=== PATIENT | female | born 1960 | race Caucasian/White ===

== ENCOUNTER → 2018-10-30 11:31 | Outpatient (CLI) | payer OTHER, MEDICAID, SELFPAY ==
--- NOTE | 2018-10-30 | DI.MG.S_ITS ---
BILATERAL DIGITAL SCREENING MAMMOGRAM 3D/2D WITH CAD: 10/30/2018 CLINICAL: Routine screening. Family history of breast cancer. Comparison is made to exams dated: 12/13/2016 mammogram, 12/07/2015 mammogram - [facility], and 09/01/2014 mammogram - [facility]. There are scattered fibroglandular elements in both breasts. Current study was also evaluated with a Computer Aided Detection (CAD) system. No significant masses, calcifications, or other findings are seen in either breast. There has been no significant interval change. IMPRESSION: NEGATIVE There is no mammographic evidence of malignancy. A 1 year screening mammogram is recommended. This exam was interpreted at Station ID: [id number]. NOTE: For mammograms, a report in lay terms will be sent to the patient. Approximately 15% of breast malignancies will not be visualized mammographically. In the management of a palpable breast mass, a negative mammogram must not discourage biopsy of a clinically suspicious lesion. Electronically Signed By: Cristina baldwin/erica:10/30/2018 12:57:00 copy to: Mojgan Reagan letter sent: Normal Exam ACR BI-RADS Category 1: Negative [id number]
== END ==
PROVIDERS: PCP Internal Medicine; Visit Provider Internal Medicine
DX: Z12.31 Encounter for screening mammogram for malignant neoplasm of breast (principal); Z80.3 Family history of malignant neoplasm of breast
CPT/HCPCS: 77063; 77067

== ENCOUNTER 2018-11-11 05:00 | Emergency (ER) | payer OTHER, MEDICAID, SELFPAY ==
[2018-11-11 05:18] VITALS: BP 156/87; PULSE 88; RESP 18; TEMP 36.8; O2SAT 100; BMI 35.2
--- NOTE | 2018-11-11 05:21 | ED.ABDPAIN ---
HPI - Abdominal Pain <Fran Forte DO - Last Filed: 11/11/18 18:09> General Chief Complaint: Abdominal Pain Stated Complaint: thinks gall bladder issue hurts when I eat Time Seen by Provider: 11/11/18 05:05 Source: patient Mode of arrival: ambulatory Limitations: no limitations History of Present Illness HPI narrative: Patient is a 58-year-old female here for evaluation of epigastric abdominal pain. She states this is not new. Has been going on for months now. She states it gets worse when she eats greasy foods. The pain that she is currently experiencing has been going on for the past 24 hr. No nausea. No vomiting. No change in her bowel. No urinary symptoms. Patient thinks that she is having gallbladder issues. Related Data Home Medications Medication Instructions Recorded Confirmed ibuprofen 800 mg PO TIDP PRN #0 07/27/16 tramadol 50 mg PO Q4H PRN #0 05/13/17 Previous Rx's Medication Instructions Recorded estradiol 1 mg PO QDAY #90 tab 05/14/17 eszopiclone [Lunesta] 2 mg PO HS #14 tab 07/01/17 trazodone 50 mg tablet See Rx Instructions PO HS #30 tab 05/18/18 Allergies Allergy/AdvReac Type Severity Reaction Status Date / Time latex [LATEX] AdvReac Mild RASH FROM Verified 11/11/18 05:48 RUBBER GLOVES erythromycin base AdvReac Unknown VOMITING Verified 11/11/18 05:48 [ERYTHROMYCIN BASE] Review of Systems <Fran Forte DO - Last Filed: 11/11/18 18:09> Constitutional Denies fever(s) Cardiovascular Denies chest pain and Denies dyspnea Respiratory Denies dyspnea Gastrointestinal Gastrointestinal: Reports abdominal pain, Denies nausea and Denies vomiting Genitourinary Denies dysuria Musculoskeletal Denies myalgias and Denies arthralgias Integumentary/Breasts Denies rash Neurologic Denies behavioral changes Psychiatric Denies behavioral changes Hematologic/Lymphatic Denies easy bleeding and Denies easy bruising PFSH <Fran Forte DO - Last Filed: 11/11/18 18:09> Medical History Insomnia (Acute) Surgical History (Updated 12/16/17 @ 06:03 by Conversion Provider) History of third molar tooth extraction Status post bilateral salpingo-oophorectomy (BSO) (08/30/16) Status post dilation and curettage (08/30/16) Status post tubal ligation Social History Smoking Status: Never smoker Social History Smoking Status: Never smoker Exam <DO Walter Howell Last Filed: 11/11/18 18:09> Initial Vital Signs Initial Vital Signs: Vital Signs Temperature 98.3 F 11/11/18 05:18 Pulse Rate 88 11/11/18 05:18 Respiratory Rate 18 11/11/18 05:18 Blood Pressure 156/87 H 11/11/18 05:18 Pulse Oximetry 100 11/11/18 05:18 Const General: cooperative, well developed, well groomed and No acute distress Orientation: alert, awake and oriented x3 Resp Effort & Inspection: normal respiratory effort Auscultation: clear to auscultation bilaterally Cardio Rate: regular rate Rhythm: regular rhythm GI Inspection: non-distended Palpation: soft, No firm and tender (Epigastric, right upper quadrant) Skin Lesions: no lesions Rashes: no rashes Neuro General: alert, awake and oriented x3 Cognition: normal cognition Speech: speech normal Extrem General: normal to inspection and capillary refill normal Psych Appearance: grossly normal and well kempt <Naomi Mendoza DO - Last Filed: 11/11/18 10:21> Initial Vital Signs Initial Vital Signs: Vital Signs Temperature 98.3 F 11/11/18 05:18 Pulse Rate 88 11/11/18 05:18 Respiratory Rate 18 11/11/18 05:18 Blood Pressure 156/87 H 11/11/18 05:18 Pulse Oximetry 100 11/11/18 05:18 Course <DO Walter Howell Last Filed: 11/11/18 18:09> Orders Ordered: Discontinued Medications Al Hydrox/Mg Hydrox/Simethicone 20 ml/ Lidocaine HCl 15 ml 0 ml PO NOW ONE Stop: 11/11/18 05:28 Last Admin: 11/11/18 05:48 Dose: 45 ml Hydromorphone HCl (Dilaudid) 0.5 mg IV NOW ONE Stop: 11/11/18 07:30 Last Admin: 11/11/18 07:36 Dose: 0.5 mg Sodium Chloride (Normal Saline 0.9%) 1,000 mls @ 1,000 mls/hr IV BOLUS ONE Stop: 11/11/18 07:35 Last Infusion: 11/11/18 09:35 Dose: 0 mls/hr Admin: 11/11/18 06:41 Dose: 1,000 mls/hr Morphine Sulfate (Morphine) 4 mg IV NOW ONE Stop: 11/11/18 06:07 Last Admin: 11/11/18 06:11 Dose: 4 mg Vital Signs - 8 hr 11/11/18 05:18 11/11/18 06:26 11/11/18 06:30 Temperature 98.3 F Pulse Rate 88 87 86 Respiratory Rate 18 18 18 Blood Pressure 156/87 H Blood Pressure [Left Arm] 178/88 H 168/80 H Pulse Oximetry 100 100 99 11/11/18 07:30 11/11/18 08:30 11/11/18 09:30 Temperature Pulse Rate 84 90 84 Respiratory Rate 14 15 15 Blood Pressure Blood Pressure [Left Arm] 137/71 145/80 H 150/86 H Pulse Oximetry 14 L 97 99 <Naomi Mendoza, - Last Filed: 11/11/18 10:21> Orders Ordered: Discontinued Medications Al Hydrox/Mg Hydrox/Simethicone 20 ml/ Lidocaine HCl 15 ml 0 ml PO NOW ONE Stop: 11/11/18 05:28 Last Admin: 11/11/18 05:48 Dose: 45 ml Hydromorphone HCl (Dilaudid) 0.5 mg IV NOW ONE Stop: 11/11/18 07:30 Last Admin: 11/11/18 07:36 Dose: 0.5 mg Sodium Chloride (Normal Saline 0.9%) 1,000 mls @ 1,000 mls/hr IV BOLUS ONE Stop: 11/11/18 07:35 Last Infusion: 11/11/18 09:35 Dose: 0 mls/hr Admin: 11/11/18 06:41 Dose: 1,000 mls/hr Morphine Sulfate (Morphine) 4 mg IV NOW ONE Stop: 11/11/18 06:07 Last Admin: 11/11/18 06:11 Dose: 4 mg Vital Signs - 8 hr 11/11/18 05:18 11/11/18 06:26 11/11/18 06:30 Temperature 98.3 F Pulse Rate 88 87 86 Respiratory Rate 18 18 18 Blood Pressure 156/87 H Blood Pressure [Left Arm] 178/88 H 168/80 H Pulse Oximetry 100 100 99 11/11/18 07:30 11/11/18 08:30 11/11/18 09:30 Temperature Pulse Rate 84 90 84 Respiratory Rate 14 15 15 Blood Pressure Blood Pressure [Left Arm] 137/71 145/80 H 150/86 H Pulse Oximetry 14 L 97 99 MDM - Abdominal Pain <Fran Forte DO - Last Filed: 11/11/18 18:09> Lab Data Attestation: I reviewed the patient's lab results. Result diagrams: 11/11/18 05:33 11/11/18 05:33 Lab Results 11/11/18 11/11/18 Range/Units 05:33 05:33 WBC 5.3 (4.5-11.0) X10^3/uL RBC 4.66 (4.0-5.2) X10^6/uL Hgb 15.1 (12.0-16.0) g/dL Hct 43.1 (36-46) % MCV 92.5 (80-100) fL MCH 32.5 (26-34) PG MCHC 35.2 (30-36) % RDW 12.8 (11.6-14.8) % Plt Count 212 (150-400) X10^3/uL Neut % (Auto) 45.5 L (50-75) % Lymph % (Auto) 41.3 H (25-40) % [place] % (Auto) 9.4 (3-14) % Eos % (Auto) 2.8 (2-4) % Baso % (Auto) 1.0 (0-2) % Neut # (Auto) 2400 (8671-0103) /uL Lymph # (Auto) 2200 (9075-0833) /uL [place] # (Auto) 500 (0-900) /uL Eos # (Auto) 100 (0-450) /uL Baso # (Auto) 100 (0-100) /uL Sodium 138 (137-145) mmol/L Potassium 4.1 (3.4-5.1) mmol/L Chloride 103 (98-107) mmol/L Carbon Dioxide 26 (22-32) mmol/L BUN 11 (7-17) mg/dL Creatinine 0.60 (0.52-1.04) mg/dL Estimated GFR > 60.0 (>60) mL/min BUN/Creatinine Ratio 18.3 (6-22) Glucose 87 (70-100) mg/dL Calcium 9.0 (8.4-10.2) mg/dL Total Bilirubin 0.6 (0.2-1.3) mg/dL AST 47 H (14-36) IU/L ALT 52 (9-52) IU/L Alkaline Phosphatase 78 (38-126) U/L Total Protein 8.1 (6.3-8.2) g/dL Albumin 4.5 (3.5-5.0) g/dL Globulin 3.6 (1.7-4.1) g/dL Albumin/Globulin Ratio 1.3 (1.0-2.8) Lipase 48 (23-300) U/L Imaging Data US - abdomen: Radiologist's impression: Gallbladder sludge. Gallbladder is mildly distended. No sonographic evidence of acute cholecystitis. No gallbladder wall thickening or pericholecystic fluid. Mild common bile duct dilation. Diffuse fatty infiltration of the liver. MDM Narrative Medical decision making narrative: Patient does not have definitive gallbladder discomfort. Her lipase is unremarkable. The GI cocktail did not improve and if her symptoms. Since she has had pain for some time now and has not had any evaluated will obtain a CT scan of the abdomen for further evaluation. Care turned over to day provider to follow up on CT scan and disposition. <Naomi Mendoza DO - Last Filed: 11/11/18 10:21> Lab Data Attestation: I reviewed the patient's lab results. Lab Results 11/11/18 11/11/18 Range/Units 05:33 05:33 WBC 5.3 (4.5-11.0) X10^3/uL RBC 4.66 (4.0-5.2) X10^6/uL Hgb 15.1 (12.0-16.0) g/dL Hct 43.1 (36-46) % MCV 92.5 (80-100) fL MCH 32.5 (26-34) PG MCHC 35.2 (30-36) % RDW 12.8 (11.6-14.8) % Plt Count 212 (150-400) X10^3/uL Neut % (Auto) 45.5 L (50-75) % Lymph % (Auto) 41.3 H (25-40) % [place] % (Auto) 9.4 (3-14) % Eos % (Auto) 2.8 (2-4) % Baso % (Auto) 1.0 (0-2) % Neut # (Auto) 2400 (9450-7676) /uL Lymph # (Auto) 2200 (3802-5327) /uL [place] # (Auto) 500 (0-900) /uL Eos # (Auto) 100 (0-450) /uL Baso # (Auto) 100 (0-100) /uL Sodium 138 (137-145) mmol/L Potassium 4.1 (3.4-5.1) mmol/L Chloride 103 (98-107) mmol/L Carbon Dioxide 26 (22-32) mmol/L BUN 11 (7-17) mg/dL Creatinine 0.60 (0.52-1.04) mg/dL Estimated GFR > 60.0 (>60) mL/min BUN/Creatinine Ratio 18.3 (6-22) Glucose 87 (70-100) mg/dL Calcium 9.0 (8.4-10.2) mg/dL Total Bilirubin 0.6 (0.2-1.3) mg/dL AST 47 H (14-36) IU/L ALT 52 (9-52) IU/L Alkaline Phosphatase 78 (38-126) U/L Total Protein 8.1 (6.3-8.2) g/dL Albumin 4.5 (3.5-5.0) g/dL Globulin 3.6 (1.7-4.1) g/dL Albumin/Globulin Ratio 1.3 (1.0-2.8) Lipase 48 (23-300) U/L Imaging Data US - abdomen: Radiologist's impression: PROCEDURE: CT ABDOMEN PELVIS W CON INDICATIONS: generalized abdominal pain TECHNIQUE: After the administration of intravenous contrast, 5 mm thick sections acquired from the diaphragm to the symphysis. 5 mm coronal and sagittal reformats were acquired. For radiation dose reduction, the following was used: automated exposure control, adjustment of mA and/or kV according to patient size. COMPARISON: None. FINDINGS: Image quality: Excellent. ABDOMEN: Lung bases: Lung bases are clear. Heart size is normal. Solid organs: Liver is normal in size and enhancement. Gallbladder appears normal. Biliary system is non dilated. Pancreas enhances normally. Spleen is normal in size and enhancement. No adrenal nodules. Kidneys demonstrate normal size and enhancement, without hydronephrosis. Peritoneum and bowel: Bowel loops demonstrate normal wall thickness and caliber. No free fluid or air. Nodes and vessels: No retroperitoneal or mesenteric adenopathy by size criteria. Aorta and inferior vena cava are normal in size. Miscellaneous: No ventral hernias. PELVIS: Genitourinary: Bladder wall thickness is normal. Miscellaneous: No inguinal hernias or adenopathy. Bones: No suspicious bony lesions. No vertebral body compression fractures. IMPRESSION: Shortness of generalized abdominal pain is not seen. The study appears normal for age. Dictated by: Blaine Parra M.D. on 11/11/2018 at 9:33 CT scan - abdomen: Radiologist's impression: PROCEDURE: CT ABDOMEN PELVIS W CON INDICATIONS: generalized abdominal pain TECHNIQUE: After the administration of intravenous contrast, 5 mm thick sections acquired from the diaphragm to the symphysis. 5 mm coronal and sagittal reformats were acquired. For radiation dose reduction, the following was used: automated exposure control, adjustment of mA and/or kV according to patient size. COMPARISON: None. FINDINGS: Image quality: Excellent. ABDOMEN: Lung bases: Lung bases are clear. Heart size is normal. Solid organs: Liver is normal in size and enhancement. Gallbladder appears normal. Biliary system is non dilated. Pancreas enhances normally. Spleen is normal in size and enhancement. No adrenal nodules. Kidneys demonstrate normal size and enhancement, without hydronephrosis. Peritoneum and bowel: Bowel loops demonstrate normal wall thickness and caliber. No free fluid or air. Nodes and vessels: No retroperitoneal or mesenteric adenopathy by size criteria. Aorta and inferior vena cava are normal in size. Miscellaneous: No ventral hernias. PELVIS: Genitourinary: Bladder wall thickness is normal. Miscellaneous: No inguinal hernias or adenopathy. Bones: No suspicious bony lesions. No vertebral body compression fractures. IMPRESSION: Shortness of generalized abdominal pain is not seen. The study appears normal for age. Dictated by: Blaine Parra M.D. on 11/11/2018 at 9:33 [facility] Narrative Medical decision making narrative: I received sign-out from security project manager provider. Patient having some epigastric pain seems worse as every time she eats. I have done independent exam by myself she is slightly tender to her epigastric area. We discussed omeprazole twice a day for 2 weeks before meals and possible outpatient EGD. She has appointment with her PCP at 11:30 a.m. today. This time she is ready and able to go home. Discharge Plan Departure Patient Disposition: Home Clinical Impression: Abdominal pain Qualifiers: Abdominal location: epigastric Qualified Code(s): R10.13 - Epigastric pain Discharge Date/Time: 11/11/18 10:03 Interventions: ED Discharge Assessment Last Done: 11/11/18 10:03 Instructions: DI for Abdominal Pain-Adult, DI for Gastric Ulcer, DI for Peptic Ulcer Activity Restrictions/Additional Instructions: *You have been diagnosed with abdominal pain, it is thought that you may have an ulcer. *What to do: At this time blood work, ultrasound and CT are reassuring. Recommend further evaluation with her PCP, he may require an EGD if symptoms do not improve with ulcer treatment *Continue to take medications as directed -omeprazole 20 mg twice a day 30 min prior to breakfast and dinner for 2 weeks and then stop *Follow up with your primary care provider in 2-3 days *Return to ER if you should have increasing pain persistent vomiting or any new, worsening or concerning symptoms Prescriptions: No Action ibuprofen 800 MG tablet 800 mg PO TIDP PRNQty: 0 RF: 0 tramadol 50 MG tablet 50 mg PO Q4H PRN Qty: 0 RF: 0 estradiol 1 MG tablet 1 mg PO QDAY Qty: 90 RF: 3 eszopiclone [Lunesta] 2 MG tablet 2 mg PO HS Qty: 14 RF: 3 trazodone 50 mg tablet See Rx Instructions PO HS Qty: 30 RF: 2 Referrals: Ray Drew MD [Primary Care Provider] -
[2018-11-11] MEDS: MAG HYDROX/ALUMINUM/SIMETH SUS 20 ML, LIDOCAINE VISCOUS 2% 15 ML PO (05:48)
[2018-11-11 05:49] LABS: Add Manual Diff / Slide Review NO; Basophils Absolute Auto 100 /uL (0-100); Eosinophils Absolute Auto 100 /uL (0-450); Eosinophils Percent Auto 2.8 % (2-4); Hematocrit 43.1 % (36-46); Hemoglobin 15.1 g/dL (12.0-16.0); Lymphocytes Absolute Auto 2200 /uL (1100-4500); Lymphocytes Percent Auto 41.3 % (25-40); Mean Corpuscular HGB Conc 35.2 % (30-36); Mean Corpuscular Hemoglobin 32.5 PG (26-34); Mean Corpuscular Volume 92.5 fL (80-100); Monocytes Absolute Auto 500 /uL (0-900); Monocytes Percent Auto 9.4 % (3-14); Neutrophils Absolute Auto 2400 /uL (1500-7000); Neutrophils Percent Auto 45.5 % (50-75); Platelet Count 212 X10^3/uL (150-400); Red Blood Cell Count 4.66 X10^6/uL (4.0-5.2); Red Cell Distribution Width 12.8 % (11.6-14.8); White Blood Cell Count 5.3 X10^3/uL (4.5-11.0)
[2018-11-11 06:09] LABS: Alanine Aminotransferase 52 IU/L (9-52); Albumin 4.5 g/dL (3.5-5.0); Albumin Globulin Ratio 1.3 (1.0-2.8); Alkaline Phosphatase 78 U/L (38-126); Aspartate Aminotransferase 47 IU/L (14-36); BUN Creatinine Ratio 18.3 (6-22); Bilirubin Total 0.6 mg/dL (0.2-1.3); Blood Urea Nitrogen 11 mg/dL (7-17); Carbon Dioxide 26 mmol/L (22-32); Chloride 103 mmol/L (98-107); Estimated Glomerular Filt Rate > 60.0 mL/min (>60); Globulin 3.6 g/dL (1.7-4.1); Glucose 87 mg/dL (70-100); HEMOLYSIS < 15 (0-50); Lipase 48 U/L (23-300); Potassium 4.1 mmol/L (3.4-5.1); Sodium 138 mmol/L (137-145); Total Protein 8.1 g/dL (6.3-8.2)
[2018-11-11] MEDS: MORPHINE 4 MG/ML INJ IV (06:11)
[2018-11-11 06:26] VITALS: BP 178/88; PULSE 87; RESP 18; O2SAT 100
[2018-11-11 06:30] VITALS: BP 168/80; PULSE 86; RESP 18; O2SAT 99
[2018-11-11] MEDS: SODIUM CHLORIDE 0.9% 1,000 ML 1000 ML IV (06:41)
[2018-11-11 07:30] VITALS: BP 137/71; PULSE 84; RESP 14; O2SAT 14
--- NOTE | 2018-11-11 07:31 | DI.CT.S_ITS ---
PROCEDURE: CT ABDOMEN PELVIS W CON INDICATIONS: generalized abdominal pain TECHNIQUE: After the administration of intravenous contrast, 5 mm thick sections acquired from the diaphragm to the symphysis. 5 mm coronal and sagittal reformats were acquired. For radiation dose reduction, the following was used: automated exposure control, adjustment of mA and/or kV according to patient size. COMPARISON: None. FINDINGS: Image quality: Excellent. ABDOMEN: Lung bases: Lung bases are clear. Heart size is normal. Solid organs: Liver is normal in size and enhancement. Gallbladder appears normal. Biliary system is non dilated. Pancreas enhances normally. Spleen is normal in size and enhancement. No adrenal nodules. Kidneys demonstrate normal size and enhancement, without hydronephrosis. Peritoneum and bowel: Bowel loops demonstrate normal wall thickness and caliber. No free fluid or air. Nodes and vessels: No retroperitoneal or mesenteric adenopathy by size criteria. Aorta and inferior vena cava are normal in size. Miscellaneous: No ventral hernias. PELVIS: Genitourinary: Bladder wall thickness is normal. Miscellaneous: No inguinal hernias or adenopathy. Bones: No suspicious bony lesions. No vertebral body compression fractures. IMPRESSION: Shortness of generalized abdominal pain is not seen. The study appears normal for age. Dictated by: Blaine Parra M.D. on 11/11/2018 at 9:33 Approved by: Blaine Parra M.D. on 11/11/2018 at 9:34
[2018-11-11] MEDS: HYDROMORPHONE 1 MG INJ 0.5 MG IV (07:36)
--- NOTE | 2018-11-11 07:42 | DI.US.S_ITS ---
PROCEDURE: US ABDOMEN COMPLETE INDICATIONS: RUQ eval for GB pathology TECHNIQUE: Real-time scanning was performed of the abdominal and retroperitoneal organs, with image documentation. COMPARISON: [facility], US, ABDOMEN COMPLETE, 02/13/2016, 12:43. FINDINGS: Liver: Liver is normal in size and homogeneous in echotexture, moderately hyperechoic consistent with fatty infiltration. Gallbladder: No gallstones seen but sludge is present dependent within the gallbladder lumen. The gallbladder wall is normal in thickness and no focal gallbladder tenderness is found. Biliary ducts: Intrahepatic bile ducts are non-dilated. Extrahepatic bile duct caliber measures 7.4 mm. Normal is 6-7 mm or less in diameter, or 10 mm or less post-cholecystectomy. Pancreas: Visualized portions of the pancreas are sonographically normal but much of the pancreas was poorly seen due to bowel gas and overlying hyperechoic liver echotexture. Spleen: Spleen is normal in size and homogeneous in echotexture. Kidneys: Kidneys are normal in size and echotexture. Right kidney measures 10.5 cm long; left kidney measures 11.6 cm long. No hydronephrosis or nephrolithiasis. No solid masses. Aorta: Not seen due to bowel gas Iliacs: Not seen due to bowel gas IVC: Not seen due to bowel gas Miscellaneous: No free abdominal fluid. IMPRESSION: Significant portions of the peritoneal space and retroperitoneum were poorly seen due to body habitus and bowel gas. Moderate fatty infiltration throughout the liver. Mild sludge identified within the gallbladder lumen but without gallstones. As noted, the pancreas was poorly visualized as were the retroperitoneal vasculature due to bowel gas. Dictated by: Blaine Parra M.D. on 11/11/2018 at 9:29 Approved by: Blaine Parra M.D. on 11/11/2018 at 9:31
--- NOTE | 2018-11-11 07:56 | PC.NURSE ---
return from ct, pt reports, epigastric pain for several months, just getting worst, pain worsen after eating. yesterday pain lasting more than 24 hours. last ate yesterday at 9pm had rice, described as pressure,tightness and cramping, denies vomiting, had normal bm yesterday, hs of ibsdl. denies fever.
[2018-11-11 08:30] VITALS: BP 145/80; PULSE 90; RESP 15; O2SAT 97
[2018-11-11 09:30] VITALS: BP 150/86; PULSE 84; RESP 15; O2SAT 99
== END 2018-11-11 10:03 | disposition home or self-care (01) ==
PROVIDERS: Emergency Medicine; Emergency Provider Emergency Medicine; PCP Internal Medicine
DX: R10.13 Epigastric pain (principal)
CPT/HCPCS: 36591; 74177; 76700; 80053; 83690; 85025; 96361; 96374; 96375; 99283; 99284; J1170; J2270; Q9967

== ENCOUNTER 2019-07-01 10:03 | Day surgery (SDC) | payer OTHER, MEDICAID, SELFPAY ==
--- NOTE | 2019-07-01 | PATH_ITS ---
[facility] Accession Number: [id number] . 01 Material submitted: . esophagus, E-G Junction - GE JUNCTION BIOPSIES . 02 Diagnosis: Gastroesophageal Junction, Biopsies: Squamous epithelium with mild reactive features of reflux esophagitis. Columnar mucosa not sampled. Negative for specialized intestinal metaplasia, dysplasia or malignancy. [facility] 07/02/2019 0947 Local . 02 Electronically signed: . Artis Alexis MD, PhD, Pathologist NPI- [id number] . 01 Gross description: . GE JUNCTION BIOPSIES: Received in formalin are 4 fragment(s) of hong, soft tissue measuring 0.1 x 0.1 x 0.1 cm to 0.3 x 0.2 x 0.1 cm submitted entirely in 1 cassette(s) /[facility] 07/01/20199 Local . 02 Pathologist provided ICD-10: K21.9 . 02 CPT . 736700 Performed at: 01 [facility] [address] [facility] [place], [place], [place] [id number] MD Ernst Cline MD Phone: [phone] Performed at: 02 [facility] [address] [place], [place] [id number] MD Macie Dietrich MD Phone: [phone]
[2019-07-01 10:32] VITALS: BP 153/95; PULSE 100; RESP 18; TEMP 37.3; O2SAT 99; BMI 9402.6
[2019-07-01] MEDS: SODIUM CHLORIDE 0.9% 1,000 ML 200 ML IV (10:47)
[2019-07-01 10:53] VITALS: BMI 9402.6
[2019-07-01] MEDS: LIDOCAINE 4% SOLN 50 ML 20 ML TOP (11:20)
--- NOTE | 2019-07-01 11:20 | PM.PREOP ---
Pre-operative Note Interval Note History & Physical reviewed/Exam performed by Physician: Yes Changes to H&P: No H&P completed within 30 days and has changed as indicated here:: See note 11 6 ASA Class (for procedural sedation): I
[2019-07-01 11:40] VITALS: BP 136/101; PULSE 112; RESP 11; TEMP 36.8; O2SAT 96
[2019-07-01] MEDS: MIDAZOLAM 5 MG/5 ML VIAL IV (11:40)
[2019-07-01] MEDS: fentaNYL 250 MCG/5 ML INJ IV (11:40)
--- NOTE | 2019-07-01 11:42 | PM.OP.ENDO ---
Operative Date/Time/Diagnoses Date of procedure: 07/01/19 Time of procedure: 11:42 Pre-op diagnosis: Upper abdominal pain Post-op diagnosis: same (Possible De La Torre's esophagus. Biopsies pending.) Procedure & Clinicians Study performed: EGD with cold biopsy Same procedure as scheduled: Yes Indications: Patient with postprandial upper abdominal pain left upper quadrant pain for an EGD to evaluate a possible source Surgeon: Marcus Nunez Procedure Notes SCOAP/Timeout: Perform Procedure in detail: The patient had topical anesthetic applied to oropharynx. She was placed in left lateral decubitus position and underwent IV sedation directed by the surgeon consisting of fentanyl and Versed. A bite block was inserted and the scope was advanced through it into the esophagus. The esophagus was unremarkable until I reach the GE junction where there was some mild inflammation and possible findings the could be De La Torre's esophagus.. GE junction was noted at 39 cm from the incisors. The stomach insufflated well. There were no lesions seen in the body, antrum or at the incisura. The pyloric channel was patent. The duodenum was unremarkable to the 3rd part. The scope was brought back into the stomach and retroflexed. The proximal stomach normal in appearance.. The scope was straightened and brought out through the esophagus again. Biopsies were taken at the GE junction. No other lesions were seen. The scope was brought through the esophagus. The scope was removed and the patient tolerated the procedure well. Scope withdrawal time: Not applicable Sedation minutes: 11 Findings: De La Torre's esophagus (Possible. Biopsies taken and are pending.) Specimen(s): other (GE junction biopsies) Complications: none Post-procedure Recommendations: Will call with biopsy results (Will consider laparoscopic cholecystectomy if symptoms persist based upon the finding of sludge in her gallbladder.) Follow up: as needed Disposition: PACU
[2019-07-01 11:48] VITALS: BP 126/87; PULSE 106; RESP 16; O2SAT 96
[2019-07-01 11:53] VITALS: BP 131/88; PULSE 104; RESP 20; O2SAT 97
[2019-07-01 11:58] VITALS: BP 128/83; PULSE 100; RESP 17; O2SAT 98
[2019-07-01 12:14] VITALS: BP 115/74; PULSE 97; RESP 17; TEMP 36.2; O2SAT 98
== END 2019-07-01 12:20 | disposition home or self-care (01) ==
PROVIDERS: PCP Internal Medicine; Visit Provider Specialist
PROC: 0DJ08ZZ Inspection of Upper Intestinal Tract, Via Natural or Artificial Opening Endoscopic (ICD-10-PCS; CPT 43235; principal; 2019-07-01 11:45)
DX: K21.0 Gastro-esophageal reflux disease with esophagitis (principal)
CPT/HCPCS: 43239; 99152; J2250; J3010

== ENCOUNTER 2019-07-26 10:02 | Day surgery (SDC) | payer OTHER, MEDICAID, SELFPAY ==
[2019-07-22 08:07] VITALS: BMI 36.7
[2019-07-26] VITALS (15 sets, daily range): BP systolic 91–140; BP diastolic 48–88; PULSE 63–97; RESP 9–20; TEMP 36.1–36.9; O2SAT 92–100; BMI 36.7
--- NOTE | 2019-07-26 | PATH_ITS ---
[facility] Accession Number: [id number] . 01 Material submitted: . gallbladder - GALLBLADDER . 02 Diagnosis: Gallbladder, Cholecystectomy: Chronic cholecystitis. No calculi identified. Negative for dysplasia and malignancy. [facility] 07/28/2019 1112 Local . 02 Electronically signed: . Macie Dietrich MD, Pathologist NPI- [id number] . 01 Gross description: . Received in formalin, labeled gallbladder, is an opened gallbladder (length-7.5 cm, diameter-2.6 cm) with mandujano-pink smooth shiny serosa and a patent cystic duct. No lymph nodes are identified. The lumen contains dark green viscous bile. No calculi are present. The mucosa is green, smooth and flat. The wall is up to 0.1 cm thick. No nodules, masses or lesion are identified. Section code: (A1) cystic duct resection margin and two serial sections from the body; (A2) two longitudinal sections from the fundus. ([id number]) /[facility] 07/27/2019 1303 Local . 02 Pathologist provided ICD-10: K81.1 . 02 CPT . 105740 Performed at: 01 [facility] [address], [place], [place] [id number] MD Ernst Cline MD Phone: [phone] Performed at: 02 [facility] [address] [place], [place] [id number] MD Macie Dietrich MD Phone: [phone]
[2019-07-26] MEDS: LACTATED RINGERS 1,000 ML 100 ML IV (10:23)
--- NOTE | 2019-07-26 10:59 | P.HP_ITS ---
History of Present Illness History of Present Illness Date Patient Seen: 07/26/19 Time Patient Seen: 10:59 Chief complaint: [id number] Narrative: The patient is woman who has been having intermittent upper abdominal pain and nausea sometimes postprandially. Is is sometimes accompanied by vomiting. She had a ultrasound that showed sludge. She has had an EGD that failed to show any lesion that would be responsible for her symptoms. She has had a normal HIDA scan in past. She is brought in for laparoscopic cholecystectomy Patient History Medical History Acid reflux (Acute) Anxiety (Acute) Arthritis (Acute) Chronic back pain (Acute) Fibromyalgia (Acute) Hx of lipoma (Acute) Insomnia (Acute) Surgical History History of third molar tooth extraction Hx of abdominoplasty (Acute) Hx of hernia repair (Acute) Status post bilateral salpingo-oophorectomy (BSO) (08/30/16) Status post dilation and curettage (08/30/16) Status post tubal ligation Family & Social History Family History Mother Hypertension Grandmother Cancer Grandfather Diabetes mellitus Social History: household members spouse Tobacco & Substance use: Smoking Status Never smoker alcohol intake current alcohol intake frequency 0-2 drinks per day Substance Use Type does not use Meds Home Medications and Allergies Home Medications Medication Instructions Recorded Confirmed Type ibuprofen 800 mg PO TIDP PRN #0 07/27/16 07/26/19 History tramadol 50 mg PO Q4H PRN #0 05/13/17 07/26/19 History famotidine 20 mg tablet 20 mg PO DAILY 06/23/19 07/26/19 History Allergies Allergy/AdvReac Type Severity Reaction Status Date / Time latex [LATEX] AdvReac Mild RASH FROM Verified 07/26/19 10:43 RUBBER GLOVES erythromycin base AdvReac Unknown VOMITING Verified 07/26/19 10:43 [ERYTHROMYCIN BASE] Review of Systems Review of Systems ROS Unobtainable: All systems reviewed & are unremarkable except as noted in HPI and below Gastrointestinal Comments: Has had weight loss surgery and has had a tummy tuck Exam Vital Signs (past 8 hours): - 12/09/19 10:25 Temperature 97.0 F L Pulse Rate 93 H Respiratory Rate 20 Blood Pressure 140/84 Pulse Oximetry 100 Oxygen Delivery Method Room Air Narrative Exam Narrative: Cooperative no apparent distress. Lungs are clear to auscultation no rales or rhonchi heart regular rate and rhythm no murmur gallop no jaundice abdomen postoperative changes from her tummy tuck. Protuberant nontender without mass. No ventral hernias appreciated. Assessment & Plan Assessment & Plan narrative: Patient with sludge and recent ultrasound to evaluate upper abdominal complaints. Other studies negative for an explanation. She is brought in for lap choly. I've discussed this with the patient including risks of bleeding, infection, injury to internal organs or ducts which would require major operation to repair, bile leakage, postoperative diarrhea, a nd hernia. She appears to understand wishes to proceed.
[2019-07-26] MEDS: CEFAZOLIN 2 GM/100 ML FROZ.PIGGY IV (11:02)
--- NOTE | 2019-07-26 11:03 | PM.PREOP ---
Pre-operative Note Interval Note History & Physical reviewed/Exam performed by Physician: Yes Changes to H&P: No
--- NOTE | 2019-07-26 11:26 | SUR.OPER ---
Supine on padded OR bed, head on pillow, safety belt at thigh, Right AND LEFTarm secured on padded arm Board <90 degrees abduction. Legs uncrossed. Padded footboard in place. Tape over blanket to secure lower legs.
[2019-07-26] MEDS: BUPIVACAINE 0.5% (PF) VIAL 30 ML INJ (11:57)
[2019-07-26] MEDS: fentaNYL 100 MCG/2 ML INJ IV ×4 (12:54→13:57)
--- NOTE | 2019-07-26 12:59 | SUR.PHASEI ---
denies nausea, HOB elevated more, pudding and water given in prep for PO rx
--- NOTE | 2019-07-26 12:59 | PM.OP.1 ---
Operative Date/Time/Diagnoses Date of procedure: 07/26/19 Time of procedure: 12:42 Pre-op diagnosis: Upper abdominal pain. Abnormal ultrasound of the gallbladder with sludge Post-op diagnosis: same Procedure & Clinicians Procedure: Laparoscopic cholecystectomy Same procedure as scheduled: Yes Indications: Symptoms suggestive of possible gallbladder disease. Negative EGD. Ultrasounds showing sludge. Surgeon: Marcus Nunez Click Yes if Unassisted: Yes Anesthesia Type: General Operative Notes Findings: Slightly aberrant anatomy. See note below Closure Type: primary Specimen(s): other (Gallbladder) Prosthetic devices, grafts, tissues, transplants, or devices: None Estimated Blood Loss (mL): 10 Blood products transfused: none Procedure in detail: The patient is placed supine on the operating room table and underwent general endotracheal anesthesia. She was prepped and draped in the usual fashion. Small incision was made beneath her umbilicus. She has had an abdominoplasty in her anatomy is somewhat deformed. The incision was carried through the fascia into the peritoneal cavity. Stay sutures of 0 Vicryl were placed in the fascia. A 12 mm port was inch certain it and insufflated. Three additional ports were placed under the right costal margin. The gallbladder was identified as a mildly in flames structure was grasped and elevated dissection was begun near its in. There was a little bit of an aberrant anatomic pattern. Large artery in the rikki actually projected over the area with the cystic duct would normally be found. The cystic duct was actually located posterior and inferior and the artery going directly to the gallbladder came off the larger artery and inserted high on the gallbladder wall. I dissected the artery immediately adjacent to the gallbladder placed 4 clips on it and divided it leaving 3 in the patient. The cystic duct was from surrounding structures I could see its junction at the common bile duct and I placed 4 clips on it and divided leaving 3 in the patient. The gallbladder was then dissected from its bed in the liver. It was detached and placed in a bag and removed without difficulty. The right upper quadrant irrigated and suctioned free of fluid. Hemostasis was achieved. The ports were all removed. There was a small amount of bleeding from the left lobe of the liver which had ceased at completion. The ports were all removed and the stay stitches were tied at the umbilicus and additional stitch of 2 0 PDS was placed between the 2 Vicryl sutures. The wounds were irrigated and 4 0 Vicryl subcuticular stitches were used to close the skin. There was not a lot of given the tissues and IA decided to place an additional 6 0 nylon sutures at the infraumbilical incision to bring the skin together better. I used Steri-Strips elsewhere to bring the skin edges better together. Band-Aids were applied the patient was awakened extubated taken recovery area in good condition. There were no apparent complications. Complications: none Post-operative Condition: stable Disposition: PACU
[2019-07-26] MEDS: OXYCODONE/ACETAMINOPHEN 5/325 TABLET 1 TAB PO ×2 (13:05→13:43)
[2019-07-26] MEDS: HYDROMORPHONE 2 MG INJ IV ×4 (13:11→13:32)
--- NOTE | 2019-07-26 13:13 | SUR.PHASEI ---
tolerating PO intake well, medicating for pain control. hand-off to Kumar Parra RN
== END 2019-07-26 15:03 | disposition home or self-care (01) ==
PROVIDERS: PCP Internal Medicine; Visit Provider Specialist
PROC: 0FT44ZZ Resection of Gallbladder, Percutaneous Endoscopic Approach (ICD-10-PCS; CPT 47562; principal; 2019-07-26 11:15)
DX: K81.1 Chronic cholecystitis (principal); M79.7 Fibromyalgia; K21.9 Gastro-esophageal reflux disease without esophagitis; F41.9 Anxiety disorder, unspecified
CPT/HCPCS: 47562; J0690; J1100; J1170; J1885; J2405; J2704; J3010

== ENCOUNTER → 2020-07-28 15:14 | Outpatient (CLI) | payer OTHER, MEDICAID, SELFPAY ==
[2020-07-28 16:46] LABS: COVID19 -Nasal RAPID Negative (Negative)
== END ==
PROVIDERS: PCP Internal Medicine; Visit Provider Physician Assistant
DX: Z11.59 Encounter for screening for other viral diseases (principal)
CPT/HCPCS: 87635

== ENCOUNTER 2020-11-06 18:49 | Emergency (ER) | payer OTHER, MEDICAID, SELFPAY ==
[2020-11-06 18:52] VITALS: BP 202/108; PULSE 99; RESP 22; TEMP 37.4; O2SAT 100
[2020-11-06 21:08] LABS: Add Manual Diff / Slide Review NO; Basophils Absolute Auto 100 /uL (0-100); Eosinophils Absolute Auto 100 /uL (0-450); Eosinophils Percent Auto 0.6 % (2-4); Hematocrit 46.5 % (36-46); Hemoglobin 16.3 g/dL (12.0-16.0); Lymphocytes Absolute Auto 2000 /uL (1100-4500); Lymphocytes Percent Auto 24.5 % (25-40); Mean Corpuscular HGB Conc 34.9 % (30-36); Mean Corpuscular Hemoglobin 34.1 PG (26-34); Mean Corpuscular Volume 97.7 fL (80-100); Monocytes Absolute Auto 400 /uL (0-900); Neutrophils Absolute Auto 5600 /uL (1500-7000); Neutrophils Percent Auto 68.9 % (50-75); Platelet Count 235 X10^3/uL (150-400); Red Blood Cell Count 4.76 X10^6/uL (4.0-5.2); Red Cell Distribution Width 13.2 % (11.6-14.8); White Blood Cell Count 8.1 X10^3/uL (4.5-11.0)
[2020-11-06 21:18] LABS: Prothrombin Time 11.7 SECONDS (10.1-12.7)
[2020-11-06] MEDS: MORPHINE 2 MG/ML INJ IV (21:20)
[2020-11-06 21:21] LABS: PTT Partial Thromboplastin Tim 35 SECONDS (26.4-36.2)
[2020-11-06 21:31] LABS: Alanine Aminotransferase 47 IU/L (<35); Albumin 4.7 g/dL (3.5-5.0); Albumin Globulin Ratio 1.2 (1.0-2.8); Alkaline Phosphatase 102 U/L (38-126); Aspartate Aminotransferase 62 IU/L (14-36); BUN Creatinine Ratio 26.8 (6-22); Bilirubin Total 0.7 mg/dL (0.2-1.3); Blood Urea Nitrogen 15 mg/dL (7-17); Calcium 9.6 mg/dL (8.4-10.2); Carbon Dioxide 30 mmol/L (22-32); Chloride 102 mmol/L (98-107); Estimated Glomerular Filt Rate > 60.0 mL/min (>60); Globulin 3.9 g/dL (1.7-4.1); Glucose 101 mg/dL (70-100); HEMOLYSIS < 15 (0-50); Lipase 91 U/L (23-300); Sodium 141 mmol/L (137-145); Total Protein 8.6 g/dL (6.3-8.2)
--- NOTE | 2020-11-06 21:50 | ED.ABDPAIN ---
HPI - Abdominal Pain General Chief Complaint: Abdominal Pain Stated Complaint: HERNIA RIGHT SIDE UNDER CHEST DIARRHEA PAIN Time Seen by Provider: 11/06/20 20:33 Source: patient Mode of arrival: Ambulatory Limitations: no limitations History of Present Illness HPI narrative: 60-year-old female nonsmoker presents with her in the chief complaint of severe right upper quadrant pain after eating a few hours ago. She states the pain is persistent and seems to get worse with motion. She denies any nausea or vomiting. She has had occasional loose stool but denies any blood in it. She has had no fever chills denies any jaundice. She had her gallbladder out about 1 year ago. She denies any extensive alcohol use. She denies recent travel, exposure to bad food or other ill persons with similar symptoms. She has had no runny nose, sore throat or cough and denies exposure to persons with COVID. MD complaint: abdominal pain Onset (ago): hour(s) Pain Consistency: constant Location: RUQ Severity: similar to previous episodes Quality: cramping and aching Radiation: none Relieving factors: rest Exacerbating factors: eating and movement Associated symptoms: diarrhea Related Data Home Medications Medication Instructions Recorded Confirmed ibuprofen 800 mg PO TIDP PRN #0 07/27/16 07/28/20 tramadol 50 mg PO Q4H PRN #0 05/13/17 07/28/20 famotidine 20 mg tablet 20 mg PO DAILY 06/23/19 07/28/20 Previous Rx's Medication Instructions Recorded hydrocodone-acetaminophen [[place]] See Rx Instructions .ROUTE 07/26/19 .COMPLEX PRN #14 tab hydrocodone 5 mg-acetaminophen 325 1 tab PO Q4H PRN #10 tab 08/03/19 mg tablet Allergies Allergy/AdvReac Type Severity Reaction Status Date / Time latex [LATEX] AdvReac Mild RASH FROM Verified 08/03/19 13:04 RUBBER GLOVES erythromycin base AdvReac Unknown VOMITING Verified 08/03/19 13:04 [ERYTHROMYCIN BASE] Review of Systems Constitutional Constitutional: Denies chills, Denies fatigue, Denies fever(s), Denies frequent falls, Denies lethargy and Denies weakness Eyes Eyes: Denies change in vision, Denies eye discharge, Denies irritation and Denies loss of vision ENT Ears, Nose, Mouth, and Throat: Denies change in voice, Denies dizziness, Denies neck pain, Denies sore throat and Denies throat swelling Cardiovascular Cardiovascular: Denies chest pain, Denies irregular heart rhythm, Denies lightheadedness, Denies palpitations, Denies dyspnea, Denies dyspnea on exertion and Denies orthopnea Respiratory Respiratory: Denies cough, Denies dyspnea, Denies dyspnea on exertion and Denies wheezing Gastrointestinal Gastrointestinal: Reports abdominal pain, Denies change in bowel habits, Denies nausea and Denies vomiting Musculoskeletal Musculoskeletal: Denies neck pain and Denies numbness Integumentary/Breasts Skin/Breast: Denies pruritus, Denies erythema, Denies rash and Denies wounds Neurologic Neurologic: Denies behavioral changes, Denies confusion, Denies dizziness, Denies frequent falls, Denies loss of vision, Denies numbness and Denies weakness Psychiatric Psychiatric: Denies anxiety, Denies behavioral changes, Denies confusion, Denies depression, Denies homicidal ideation and Denies suicidal ideation Endocrine Endocrine: Denies fatigue, Denies flushing and Denies palpitations Hematologic/Lymphatic Hematologic/Lymphatic: Denies easy bruising Allergic/Immunologic Allergic/Immunologic: Denies urticaria, Denies throat swelling and Denies wheezing Patient History Medical History (Updated 11/07/20 @ 01:06 by Natanael Villasenor DO) Acid reflux Anxiety Arthritis Chronic back pain Fibromyalgia Hx of lipoma Insomnia Surgical History History of third molar tooth extraction Hx of abdominoplasty Hx of hernia repair Status post bilateral salpingo-oophorectomy (BSO) (08/30/16) Status post dilation and curettage (08/30/16) Status post tubal ligation Family History Mother Hypertension Grandmother Cancer Grandfather Diabetes mellitus Social History marital status: household members: spouse occupational status: unemployed Smoking Status: Never smoker alcohol intake: current substance use type: does not use Smoking Status: Never smoker alcohol intake frequency: 0-2 drinks per day Substance Use Type: does not use Exam Narrative Exam Narrative: GENERAL: [60] year old patient appears stated age. Well-nourished, well-developed patient, in mild distress. HEAD: Atraumatic. Normocephalic. EYES: Pupils equal round and reactive. Extraocular motions intact. No scleral icterus. No injection or drainage. ENT: Nose without bleeding, purulent drainage. Throat without erythema, tonsillar hypertrophy or exudate. Airway patent. NECK: Trachea midline. Non tender CARDIOVASCULAR: Regular rate and rhythm without murmurs, gallops, or rubs. RESPIRATORY: Clear to auscultation. Breath sounds equal bilaterally. No wheezes, rales, or rhonchi. GASTROINTESTINAL: Abdomen soft, pain in right upper quadrant, nondistended. EXTREMITIES: No edema or joint tenderness. BACK: Nontender without deformity or crepitance. No flank tenderness. NEURO: AOx3. SKIN: No rash or erythema of visible areas Initial Vital Signs Initial Vital Signs: Vital Signs Temperature 99.4 F 11/06/20 18:52 Pulse Rate 99 H 11/06/20 18:52 Respiratory Rate 22 11/06/20 18:52 Blood Pressure 202/108 H 11/06/20 18:52 Pulse Oximetry 100 11/06/20 18:52 Course Orders Ordered: ED Orders 11/06/20 21:00 Complete Blood Count AUTO DIFF Stat Comprehensive Metabolic Panel Stat Lipase Stat Partial Thromboplastin Time Stat Prothrombin Time INR Stat 11/06/20 22:10 US abdomen limited Stat 11/06/20 23:36 CT abdomen pelvis w con Stat Discontinued Medications Hydrocodone Bitart/Acetaminophen (Hydrocodone/Acet 5/325 Prepack) 1 bottle MISC SEEINSTR ONE Stop: 11/07/20 01:05 Hydromorphone HCl (Hydromorphone 0.5 Mg Inj) 0.5 mg IV NOW ONE Stop: 11/06/20 22:11 Last Admin: 11/06/20 22:23 Dose: 0.5 mg Documented by: GEOFFREY Hydromorphone HCl (Hydromorphone 1 Mg Inj) 1 mg IV NOW ONE Stop: 11/06/20 23:08 Last Admin: 11/06/20 23:11 Dose: 1 mg Documented by: GEOFFREY Sodium Chloride (Normal Saline 0.9%) 1,000 mls @ 1,000 mls/hr IV BOLUS ONE Stop: 11/06/20 23:09 Last Infusion: 11/06/20 23:59 Dose: 0 mls/hr Documented by: Admin: 11/06/20 22:22 Dose: 1,000 mls/hr Documented by: GEOFFREY Morphine Sulfate (Morphine 2 Mg/Ml Inj) 2 mg IV NOW ONE Stop: 11/06/20 21:17 Last Admin: 11/06/20 21:20 Dose: 2 mg Documented by: KAEL Ondansetron HCl (Ondansetron 4 Mg/2 Ml Inj) 4 mg IV Q4HR PRN PRN Reason: Nausea And Vomiting Last Admin: 11/06/20 22:22 Dose: 4 mg Documented by: GEOFFREY Ondansetron HCl (Ondansetron 4 Mg Odt Prepack) 1 bottle MISC SEEINSTR ONE Stop: 11/07/20 01:05 Vital Signs Vital signs: Vital Signs - 8 hr 11/06/20 22:30 11/06/20 23:00 11/06/20 23:12 Pulse Rate 90 92 H 93 H Respiratory Rate 16 18 Blood Pressure 177/84 H 195/84 H Pulse Oximetry 99 99 100 11/06/20 23:30 11/06/20 23:31 11/07/20 00:24 Pulse Rate 100 H 93 H 98 H Respiratory Rate Blood Pressure 160/91 H Pulse Oximetry 96 96 98 11/07/20 00:30 11/07/20 01:16 Pulse Rate 92 H 85 Respiratory Rate 16 Blood Pressure 146/66 H 154/77 H Pulse Oximetry 95 97 MDM - Abdominal Pain Lab Data Result diagrams: 11/06/20 21:00 11/06/20 21:00 Labs: Lab Results 11/06/20 11/06/20 11/06/20 Range/Units 21:00 21:00 21:00 WBC 8.1 (4.5-11.0) X10^3/uL RBC 4.76 (4.0-5.2) X10^6/uL Hgb 16.3 H (12.0-16.0) g/dL Hct 46.5 H (36-46) % MCV 97.7 (80-100) fL MCH 34.1 H (26-34) PG MCHC 34.9 (30-36) % RDW 13.2 (11.6-14.8) % Plt Count 235 (150-400) X10^3/uL Neut % (Auto) 68.9 (50-75) % Lymph % (Auto) 24.5 L (25-40) % [place] % (Auto) 5.0 (3-14) % Eos % (Auto) 0.6 L (2-4) % Baso % (Auto) 1.0 (0-2) % Neut # (Auto) 5600 (5672-4438) /uL Lymph # (Auto) 2000 (4835-8116) /uL [place] # (Auto) 400 (0-900) /uL Eos # (Auto) 100 (0-450) /uL Baso # (Auto) 100 (0-100) /uL PT 11.7 (10.1-12.7) SECONDS INR 1.0 (0.9-1.3) APTT 35 (26.4-36.2) SECONDS Sodium 141 (137-145) mmol/L Potassium 4.0 (3.4-5.1) mmol/L Chloride 102 (98-107) mmol/L Carbon Dioxide 30 (22-32) mmol/L BUN 15 (7-17) mg/dL Creatinine 0.56 (0.52-1.04) mg/dL Estimated GFR > 60.0 (>60) mL/min BUN/Creatinine Ratio 26.8 H (6-22) Glucose 101 H (70-100) mg/dL Calcium 9.6 (8.4-10.2) mg/dL Total Bilirubin 0.7 (0.2-1.3) mg/dL AST 62 H (14-36) IU/L ALT 47 H (<35) IU/L Alkaline Phosphatase 102 (38-126) U/L Total Protein 8.6 H (6.3-8.2) g/dL Albumin 4.7 (3.5-5.0) g/dL Globulin 3.9 (1.7-4.1) g/dL Albumin/Globulin Ratio 1.2 (1.0-2.8) Lipase 91 (23-300) U/L Imaging Data US - abdomen: Radiologist's Impression: Probably fatty liver. No CBD dilitation CT scan - abdomen/pelvis: Radiologist's Impression: Fatty liver No additional acute findings MDM Narrative Medical decision making narrative: Multiple etiologies for patient's symptoms considered including: [Hepatic or biliary disease versus pancreatitis versus renal stone versus bowel obstruction versus other] Patient's symptoms improved over duration of stay with above-stated therapies. Findings and discharge diagnosis discussed with patient/family followed by verbalization of understanding Return precautions discussed with patient/family whom verbalize understanding. Discharge Plan Departure Patient Disposition: Home Clinical Impression: Right upper quadrant abdominal pain Activity Restrictions/Additional Instructions: *You have been diagnosed with [right upper quadrant pain after eating with very reassuring labs, ultrasound and CT scan] *What to do: *Take medications as directed *Follow up with your primary care provider in 2-3 days, call for an appointment. Let them know you were seen in the Emergency Department and that we ask that you be seen in follow up *Return to ER if you should have any new, worsening or concerning symptoms, such as [ ] Prescriptions: No Action ibuprofen 800 MG tablet 800 mg PO TIDP PRN (Reason: Pain (Scale Score 1-3)) Qty: 0 RF: 0 tramadol 50 MG tablet 50 mg PO Q4H PRN Qty: 0 RF: 0 hydrocodone-acetaminophen [[place]] 5-325 mg tablet 1 tab PO Q4H PRN (Reason: painful procedure) Qty: 10 RF: 0 famotidine 20 mg tablet 20 mg PO DAILY RF: 0 hydrocodone-acetaminophen [[place]] 5-325 mg tablet See Rx Instructions .ROUTE .COMPLEX PRN (Reason: painful procedure) Qty: 14 RF: 0 Referrals: Ray Drew MD [Primary Care Provider] -
--- NOTE | 2020-11-06 22:10 | DI.US.S_ITS ---
PROCEDURE: US ABDOMEN LIMITED INDICATIONS: POST PRANDIAL EPIGASTRIC PAIN TECHNIQUE: Real-time focused scanning was performed of the abdomen, with image documentation. COMPARISON: None. FINDINGS: Liver is normal in size and homogeneous echotexture. Liver is mildly echogenic. No focal hepatic mass lesions. Gallbladder is surgically absent. Biliary tree is nondilated. Common bile duct measures 5.6 millimeters. Pancreas is sonographically normal. IMPRESSION: 1. Status post cholecystectomy. 2. Biliary tree is nondilated. 3. Echogenic liver. Finding typically represents fatty infiltration; however, finding is nonspecific and correlation with clinical and laboratory findings is recommended to exclude other etiologies including hepatic cirrhosis. Dictated by: Allyson Mijares MD, PhD on 11/07/2020 at 8:16 Approved by: Allyson Mijares MD, PhD on 11/07/2020 at 8:17
[2020-11-06] MEDS: SODIUM CHLORIDE 0.9% 1,000 ML 1000 ML IV (22:22)
[2020-11-06] MEDS: ONDANSETRON 4 MG/2 ML INJ IV (22:22)
[2020-11-06] MEDS: HYDROMORPHONE 0.5 MG INJ IV (22:23)
[2020-11-06 22:30] VITALS: BP 177/84; PULSE 90; RESP 16; O2SAT 99
[2020-11-06 23:00] VITALS: BP 195/84; PULSE 92; RESP 18; O2SAT 99
[2020-11-06] MEDS: HYDROMORPHONE 1 MG INJ IV (23:11)
[2020-11-06 23:12] VITALS: PULSE 93; O2SAT 100
[2020-11-06 23:30] VITALS: PULSE 100; O2SAT 96
[2020-11-06 23:31] VITALS: BP 160/91; PULSE 93; O2SAT 96
--- NOTE | 2020-11-06 23:36 | DI.CT.S_ITS ---
PROCEDURE: CT ABDOMEN PELVIS W CON INDICATIONS: severe right abdomen pain, vomiting TECHNIQUE: After the administration of intravenous contrast, 5 mm thick sections acquired from the diaphragm to the symphysis. 5 mm coronal and sagittal reformats were acquired. For radiation dose reduction, the following was used: automated exposure control, adjustment of mA and/or kV according to patient size. COMPARISON: [facility], CT, CT ABDOMEN PELVIS W CON, 11/11/2018, 7:38. FINDINGS: Image quality: Excellent. ABDOMEN: Lung bases: Lung bases are clear. Heart size is normal. Solid organs: Liver is normal in size and enhancement. Diffuse hepatic steatosis. Gallbladder is surgically absent. Biliary system is non dilated. Pancreas enhances normally. Spleen is normal in size and enhancement. No adrenal nodules. Kidneys demonstrate normal size and enhancement, without hydronephrosis. Peritoneum and bowel: Bowel loops demonstrate normal wall thickness and caliber. No free fluid or air. Normal appendix. Nodes and vessels: No retroperitoneal or mesenteric adenopathy by size criteria. Aorta and inferior vena cava are normal in size. Miscellaneous: No ventral hernias. PELVIS: Genitourinary: Bladder wall thickness is normal. Miscellaneous: No inguinal hernias or adenopathy. Incidental note is slight endometrial thickening, which measures [address] Bones: No suspicious bony lesions. No vertebral body compression fractures. IMPRESSION: 1. Hepatic steatosis. 2. No evidence of acute abdominal process. 3. Incidental note is made of endometrial thickening in a female who is presumed to be postmenopausal based on age. Pelvic ultrasound is recommended for confirmation. Comment: Final report is concordant with preliminary interpretation provided by [facility]. Comment: Incidental endometrial thickening was discussed with JOHNATHON Fan, working in Dr. Karan Drew's office, at the time of study dictation. Dictated by: Ilan Velazquez M.D. on 11/07/2020 at 8:12 Approved by: Ilan Velazquez M.D. on 11/07/2020 at 8:32
[2020-11-07 00:24] VITALS: PULSE 98; O2SAT 98
[2020-11-07 00:30] VITALS: BP 146/66; PULSE 92; O2SAT 95
[2020-11-07 01:16] VITALS: BP 154/77; PULSE 85; RESP 16; O2SAT 97
== END 2020-11-07 01:17 | disposition home or self-care (01) ==
PROVIDERS: Emergency Provider Emergency Medicine; PCP Internal Medicine
DX: R10.11 Right upper quadrant pain (principal)
CPT/HCPCS: 36415; 74177; 76705; 80053; 83690; 85025; 85610; 85730; 93005; 93010; 96361; 96374; 96375; 96376; 99284; J1170; J2270; J2405; Q9967

== ENCOUNTER → 2021-02-21 11:29 | Outpatient (CLI) | payer OTHER, MEDICAID, SELFPAY ==
[2021-02-21 13:36] LABS: Cholesterol 236 mg/dL (140-199); HDL Cholesterol 44 mg/dL (40-60); LDL Cholesterol Calculated 142 mg/dL (<100); Triglycerides 252 mg/dL (35-150)
[2021-02-21 14:11] LABS: TSH w/ Reflex to FT4 1.08 uIU/mL (0.47-4.68)
== END ==
PROVIDERS: PCP Student in an Organized Health Care Education/Training Program; Referring Provider Student in an Organized Health Care Education/Training Program; Visit Provider Student in an Organized Health Care Education/Training Program
DX: Z13.220 Encounter for screening for lipoid disorders (principal); R03.0 Elevated blood-pressure reading, without diagnosis of hypertension
CPT/HCPCS: 36415; 80061; 84443

== ENCOUNTER → 2021-06-11 10:48 | Outpatient (CLI) | payer OTHER, MEDICAID, SELFPAY ==
[2021-06-11 11:53] LABS: COVID19 -Nasal RAPID Negative (Negative)
== END ==
PROVIDERS: PCP Student in an Organized Health Care Education/Training Program; Visit Provider Nurse Practitioner Family
DX: Z20.822 Contact with and (suspected) exposure to COVID-19 (principal); Z01.812 Encounter for preprocedural laboratory examination
CPT/HCPCS: 87635

== ENCOUNTER 2021-09-25 12:39 | Emergency (ER) | payer OTHER, MEDICAID, SELFPAY ==
[2021-09-25] VITALS (11 sets, daily range): BP systolic 126–182; BP diastolic 71–99; PULSE 103–120; RESP 16–21; TEMP 36.9; O2SAT 97–100; BMI 33.7
[2021-09-25 13:16] LABS: Add Manual Diff / Slide Review NO; Basophils Absolute Auto 0 /uL (0-100); Basophils Percent Auto 0.5 % (0-2); Eosinophils Absolute Auto 100 /uL (0-450); Eosinophils Percent Auto 1.1 % (2-4); Hematocrit 46.3 % (36-46); Lymphocytes Absolute Auto 1500 /uL (1100-4500); Lymphocytes Percent Auto 21.6 % (25-40); Mean Corpuscular HGB Conc 34.5 % (30-36); Mean Corpuscular Hemoglobin 33.3 PG (26-34); Mean Corpuscular Volume 96.5 fL (80-100); Monocytes Absolute Auto 600 /uL (0-900); Monocytes Percent Auto 7.9 % (3-14); Neutrophils Absolute Auto 4900 /uL (1500-7000); Neutrophils Percent Auto 68.9 % (50-75); Platelet Count 181 X10^3/uL (150-400); Red Cell Distribution Width 12.2 % (11.6-14.8); White Blood Cell Count 7.1 X10^3/uL (4.5-11.0)
[2021-09-25 13:24] LABS: Alanine Aminotransferase 106 IU/L (<35); Albumin 4.7 g/dL (3.5-5.0); Albumin Globulin Ratio 1.1 (1.0-2.8); Alkaline Phosphatase 131 U/L (38-126); Aspartate Aminotransferase 198 IU/L (14-36); BUN Creatinine Ratio 18.5 (6-22); Bilirubin Total 1.5 mg/dL (0.2-1.3); Blood Urea Nitrogen 12 mg/dL (7-17); Calcium 9.5 mg/dL (8.4-10.2); Carbon Dioxide 29 mmol/L (22-32); Chloride 100 mmol/L (98-107); Estimated Glomerular Filt Rate > 60.0 mL/min (>60); Globulin 4.3 g/dL (1.7-4.1); Glucose 118 mg/dL (70-100); HEMOLYSIS < 15 (0-50); Lipase 78 U/L (23-300); Potassium 4.6 mmol/L (3.4-5.1); Sodium 136 mmol/L (137-145)
--- NOTE | 2021-09-25 14:51 | ED_ITS ---
HPI - Abdominal Pain General Chief Complaint: Abdominal Pain Stated Complaint: Thinks strangulated hernia Time Seen by Provider: 09/25/21 14:18 Source: patient Mode of arrival: Ambulatory Limitations: no limitations History of Present Illness HPI narrative: 60-year-old female comes emergency department with complaint of right-sided abdominal pain. She states pain has been intermittent in the past. She believes she has a hernia. She feels like there is a lump sticking out. Movement seemed to make it worse but she is able to push the lump back inside but still is quite painful. Patient states she has felt a little sweaty, she has had nausea some dry heaves but no active emesis. She states pain is locali zed to the right upper quadrant. She denies any dysuria, urgency frequency or other difficult urinary issues. Patient has not had any new changes to bowel movements with regular stools. No vaginal bleeding or discharge. Patient has had a penectomy, cholecystectomy and hysterectomy. She takes Cymbalta, hydroxyzine and famotidine for fibromyalgia and insomnia. She denies tobacco. She drinks sometimes up to a bottle of wine daily according to her and she states she ?drinks too much?. No recreational drugs. She is accompanied by her . Dr. Rivera is her PCP. Related Data Home Medications Medication Instructions Recorded Confirmed ibuprofen 800 mg tablet 800 mg PO TIDP PRN #0 07/27/16 06/11/21 tramadol 50 mg tablet 50 mg PO Q4H PRN #0 05/13/17 06/11/21 famotidine 20 mg tablet 20 mg PO DAILY 06/23/19 06/11/21 Previous Rx's Medication Instructions Recorded hydrocodone 5 mg-acetaminophen 325 See Rx Instructions .ROUTE 07/26/19 mg tablet ([place]) .COMPLEX PRN #14 tab hydrocodone 5 mg-acetaminophen 325 1 tab PO Q4H PRN #10 tab 08/03/19 mg tablet ([place]) oxycodone 5 mg tablet 5 mg PO QID PRN #10 tab 09/25/21 Allergies Allergy/AdvReac Type Severity Reaction Status Date / Time latex [LATEX] AdvReac Mild RASH FROM Verified 09/25/21 12:45 RUBBER GLOVES erythromycin base AdvReac Unknown VOMITING Verified 09/25/21 12:45 [ERYTHROMYCIN BASE] Review of Systems Review of Systems ROS Unobtainable: All systems reviewed & are unremarkable except as noted in HPI and below Patient History Medical History Acid reflux Anxiety Arthritis Chronic back pain Fibromyalgia Hx of lipoma Insomnia Surgical History History of third molar tooth extraction Hx of abdominoplasty Hx of hernia repair Status post bilateral salpingo-oophorectomy (BSO) (08/30/16) Status post dilation and curettage (08/30/16) Status post tubal ligation Family History Mother Hypertension Grandmother Cancer Grandfather Diabetes mellitus Social History marital status: household members: spouse occupational status: unemployed Smoking Status: Never smoker alcohol intake: current substance use type: does not use Smoking Status: Never smoker alcohol intake frequency: 0-2 drinks per day Substance Use Type: does not use Exam Narrative Exam Narrative: GENERAL: Alert and oriented x three, obese female in mild distress. HEENT: Head normocephalic, atraumatic, EOMI, pupils reactive, face symmetric, moist mucous membranes NECK: Supple, full range of motion CARDIOVASCULAR: Regular rate and rhythm without murmurs, rubs or gallops. RESPIRATORY: Breath sounds equal bilaterally, no wheezes rales or rhonchi. ABDOMEN: Soft, positive for right upper quadrant tenderness. Patient does have an area of fullness at the right upper quadrant but I am not able to easily palpate bowel, there area feels firm possible hepatomegaly. There is no obvious hernia visualized this is all palpated. Bowel sounds all 4 quadrants. No guarding, positive for rebound, no rigidity, no mass. Non-distended. No erythema, ecchymosis or other skin changes appreciated. : No CVA tenderness EXTREMITIES: Normal range of motion, no clubbing or edema. Neurovascularly intact NEUROLOGICAL: Cranial nerves II through XII grossly intact. Moving all extremities SKIN: Warm, dry, no petechiae, no rashes or lesions. Initial Vital Signs Initial Vital Signs: Vital Signs Temperature 98.5 F 09/25/21 12:45 Pulse Rate 116 H 09/25/21 12:45 Respiratory Rate 16 09/25/21 12:45 Blood Pressure 182/91 H 09/25/21 12:45 Pulse Oximetry 100 09/25/21 12:45 Course Orders Ordered: ED Orders 09/25/21 12:55 EKG-12 Lead Stat 09/25/21 13:05 Complete Blood Count AUTO DIFF Stat Comprehensive Metabolic Panel Stat Lipase Stat 09/25/21 15:01 CT abdomen pelvis w con Stat 09/25/21 16:10 US abdomen limited Stat Discontinued Medications Hydromorphone HCl (Hydromorphone 0.5 Mg Inj) 0.5 mg IV NOW ONE Stop: 09/25/21 14:48 Last Admin: 09/25/21 15:01 Dose: Not Given Documented by: EDWARD Hydromorphone HCl (Hydromorphone 1 Mg Inj) 0.5 mg IV NOW ONE Stop: 09/25/21 15:01 Last Admin: 09/25/21 14:54 Dose: 0.5 mg Documented by: EDWARD Hydromorphone HCl (Hydromorphone 1 Mg Inj) 1 mg IV NOW ONE Stop: 09/25/21 17:40 Last Admin: 09/25/21 18:03 Dose: 1 mg Documented by: RADHA Sodium Chloride (Normal Saline 0.9%) 1,000 mls @ 1,000 mls/hr IV BOLUS ONE Stop: 09/25/21 16:01 Last Infusion: 09/25/21 18:43 Dose: 0 mls/hr Documented by: Admin: 09/25/21 15:24 Dose: 1,000 mls/hr Documented by: RADHA Ketorolac Tromethamine (Ketorolac 30 Mg/Ml Vial) 30 mg IV NOW ONE Stop: 09/25/21 16:10 Last Admin: 09/25/21 16:14 Dose: 30 mg Documented by: RADHA Ondansetron HCl (Ondansetron 4 Mg/2 Ml Inj) 4 mg IV NOW ONE Stop: 09/25/21 14:48 Last Admin: 09/25/21 14:54 Dose: 4 mg Documented by: EDWARD Tramadol HCl (Tramadol 50 Mg Tablet) 100 mg PO NOW ONE Stop: 09/25/21 16:10 Reevaluation(s) Reevaluation #1: Patient had some improvement with pain after Dilaudid. Pain occurred after ultrasound patient was given a dose of Toradol with minimal improvement. Patient had a 2nd dose of Dilaudid which was helpful. Time: 18:59 Consultations Consultation #1: Dr. Zimmer, recommends outpatient followup. Reviewed labs, CT findings. Patient does by her own description drink a lot of alcohol. Recommendation is to trend her labs as an outpatient. Follow up in that setting. At this time suspicion for infection is low in suspect this is likely related to your ETOH use. Vital Signs Vital signs: Vital Signs - 8 hr 09/25/21 12:45 09/25/21 14:41 09/25/21 15:31 Temperature 98.5 F Pulse Rate 116 H 107 H 116 H Respiratory Rate 16 16 Blood Pressure 182/91 H 152/98 H 153/87 H Pulse Oximetry 100 99 99 09/25/21 15:53 09/25/21 16:00 09/25/21 16:30 Temperature Pulse Rate 120 H 112 H 113 H Respiratory Rate 20 18 20 Blood Pressure 165/99 H 149/87 H 151/84 H Pulse Oximetry 99 99 98 09/25/21 17:00 09/25/21 17:30 09/25/21 18:00 Temperature Pulse Rate 106 H 104 H 103 H Respiratory Rate 21 19 18 Blood Pressure 141/71 H 130/73 130/71 Pulse Oximetry 98 97 97 09/25/21 18:30 09/25/21 18:40 Temperature Pulse Rate 106 H 107 H Respiratory Rate 19 16 Blood Pressure 126/73 Pulse Oximetry 98 MDM - Abdominal Pain Lab Data Result diagrams: 09/25/21 13:05 09/25/21 13:05 Labs: Lab Results 09/25/21 09/25/21 Range/Units 13:05 13:05 WBC 7.1 (4.5-11.0) X10^3/uL RBC 4.80 (4.0-5.2) X10^6/uL Hgb 16.0 (12.0-16.0) g/dL Hct 46.3 H (36-46) % MCV 96.5 (80-100) fL MCH 33.3 (26-34) PG MCHC 34.5 (30-36) % RDW 12.2 (11.6-14.8) % Plt Count 181 (150-400) X10^3/uL Neut % (Auto) 68.9 (50-75) % Lymph % (Auto) 21.6 L (25-40) % [place] % (Auto) 7.9 (3-14) % Eos % (Auto) 1.1 L (2-4) % Baso % (Auto) 0.5 (0-2) % Neut # (Auto) 4900 (9373-1412) /uL Lymph # (Auto) 1500 (2768-6947) /uL [place] # (Auto) 600 (0-900) /uL Eos # (Auto) 100 (0-450) /uL Baso # (Auto) 0 (0-100) /uL Sodium 136 L (137-145) mmol/L Potassium 4.6 (3.4-5.1) mmol/L Chloride 100 (98-107) mmol/L Carbon Dioxide 29 (22-32) mmol/L BUN 12 (7-17) mg/dL Creatinine 0.65 (0.52-1.04) mg/dL Estimated GFR > 60.0 (>60) mL/min BUN/Creatinine Ratio 18.5 (6-22) Glucose 118 H (70-100) mg/dL Calcium 9.5 (8.4-10.2) mg/dL Total Bilirubin 1.5 H (0.2-1.3) mg/dL AST 198 H (14-36) IU/L ALT 106 H (<35) IU/L Alkaline Phosphatase 131 H (38-126) U/L Total Protein 9.0 H (6.3-8.2) g/dL Albumin 4.7 (3.5-5.0) g/dL Globulin 4.3 H (1.7-4.1) g/dL Albumin/Globulin Ratio 1.1 (1.0-2.8) Lipase 78 (23-300) U/L Point of care testing: Urine Dip Bedside Urine Glucose Negative Bedside Urine Bilirubin - Negative Bedside Urine Ketone - Negative Urine Specific [place] 1.01 Bedside Urine Occult Blood - Negative Bedside Urine pH 6.5 Bedside Urine Protein - Negative Bedside Urine Urobilinogen - Negative Bedside Urine Nitrite - Negative Bedside Urine Leukocytes - Negative Esterase Imaging Data CT scan - abdomen/pelvis: Radiologist's Impression: Jabier Szymanski??60??F??1960 ? Allergy/Adv: latex, erythromycin base (More??) Close Abdomen Ultrasound (Signed) Joaquin Hodge - 09/25/21 Abdomen/Pelvis CT (Signed) MoranHenrry - 09/25/21 Abdomen/Pelvis CT (Signed) Michaela Velazquezic - 11/06/20 Abdomen Ultrasound (Signed) Allyson Mijares - 11/06/20 Telemetry Strips 07/01/19 Abdomen Ultrasound (Signed) Blaine Parra - 11/11/18 Abdomen/Pelvis CT (Signed) Blaine Parra - 11/11/18 Mammogram Screening (Addendum) Cristina Sheth - 10/30/18 Radiology - Historical 07/27/16 Radiology - Historical 02/29/16 Radiology - Historical 02/13/16 Launch?[place] [address] CT Scan Report Signed Patient: Jabier Szymanski MR#: [id number] : 1960 Acct:[id number] Age/Sex: 60 / F Date of Service: 09/25/21 Loc: ED Accession Number: [id number] ?? Procedure: CT abdomen pelvis w con Ordering Provider: Nyasia Arnett D.O. PROCEDURE:? CT ABDOMEN PELVIS W CON ? INDICATIONS:? RUQ pain, lump or mass, + LFT's and etoh also ? TECHNIQUE:? After the administration of intravenous contrast, axial sections acquired from the lung bases to the pubic symphysis.? Coronal and sagittal reformats were performed.? For radiation dose reduction, the following was used:? automated exposure control, adjustment of mA and/or kV according to patient size.? ? COMPARISON:? [facility], CT, CT ABDOMEN PELVIS W CON, 11/07/2020, 0:12.? [facility], CT, CT ABDOMEN PELVIS W CON, 11/11/2018, 7:38. ? FINDINGS:? Image quality:? Excellent.? ? Lung bases:? Unremarkable. Heart:? No significant findings. ? ABDOMEN: Liver:? The liver is diffusely hypoattenuating, consistent with fatty infiltration. Gallbladder:? Status post cholecystectomy. Biliary ducts:? Mild prominence of the extrahepatic bile ducts is most likely related to the prior cholecystectomy. Pancreas:? Unremarkable.? ? Spleen:? Unremarkable.? ? Adrenal Glands:? Unremarkable.? ? Kidneys and Ureters:? Unremarkable.? ? ? Stomach and Bowel:? Stomach, small bowel loops, and colon are unremarkable.? Normal appendix. Peritoneum:? No abnormal intraperitoneal fluid.? No free air.? ? Ventral Wall: ? No hernias.? Abdominal Nodes:? No retroperitoneal or mesenteric adenopathy by size criteria.? Vessels:? Aorta and inferior vena cava are normal in size.? ? PELVIS: Pelvic Organs:? The endometrial stripe is within normal limits at less than 0.5 cm on the current exam.? ? Bladder:? Unremarkable.? ? Pelvic Nodes: No enlarged lymph nodes.? Miscellaneous: No hernias are seen. ? ? ? Bones:? There is grade 1 anterolisthesis of L4 on L5 secondary to facet hypertrophy. ? ? IMPRESSION:? 1. No acute abnormality identified in the abdomen or pelvis. 2. Diffuse severe hepatic steatosis. 3. Status post cholecystectomy.? ? ? Dictated by: Henrry Moran M.D. on 09/25/2021 at 15:56 ? ? Approved by: Henrry oMran M.D. on 09/25/2021 at 16:02?? US - abdomen: Radiologist's Impression: Launch?[place] [address] Ultrasound Report Signed Patient: Jabier Szymanski MR#: [id number] : 1960 Acct:[id number] Age/Sex: 60 / F Date of Service: 09/25/21 Loc: ED Accession Number: [id number] ?? Procedure: US abdomen limited Ordering Provider: Nyasia Arnett D.O. PROCEDURE:? US ABDOMEN LIMITED ? INDICATIONS:? RUQ pain, etoh use, elevated LFTs, steatosis on CT ? TECHNIQUE:? Real-time scanning was performed of the abdominal and retroperitoneal organs, w [facility] image documentation.? ? COMPARISON:? [facility], CT, CT ABDOMEN PELVIS W CON, 09/25/2021, 15:08.? [facility], US, US ABDOMEN LIMITED, 11/06/2020, 22:56. ? FINDINGS: ? Study is largely nondiagnostic due to overlying bowel gas and body habitus.? Peripheral superficial aspects of the liver show increased echogenicity consistent with significant attic fatty infiltration. ? Gallbladder, common bile duct, pancreas and right kidney were not visualized. ? IMPRESSION: ? 1. Severely limited study consistent with hepatic fatty infiltration ? Approved by: Joaquin Hodge M.D. on 09/25/2021 at 17:04? ECG Data Attestation: I personally reviewed and interpreted this ECG as follows: Prior ECG tracings: available for review Interpretation: Sinus tachycardia, rate 108, NJ 136 QRS of 94 and QTC of 482. No acute ST elevation depression noted. Patient has prior EKG from 11/06/2020 which appears similar. MDM Narrative Medical decision making narrative: This is a 60-year-old female comes in with concern for strangulated hernia. Patient states she has had right upper quadrant pain that is worse with movement particularly bending over. It has been intermittent over several months or possibly even longer. Today she was bending over significantly worsened has b een persistent. She feels like there is a bulge which if she pushes inwards and reproduces would improve but even with that reduction today it does not resolve her symptoms. She states movement seems to make it worse. On examination there is fullness in the right upper quadrant. Patient does note that she drinks heavily. She on imaging has elevation of her bilirubin and LFTs but normal lipase. Priors show normal bilirubin in the past but elevated AST ALT at her about doubled today. Patient CT does not show any hernia or acute changes there is some hepatic steatosis versus cirrhotic changes and a prior cholecystectomy but no other acute intra-abdominal pathologies noted. EKG does not show any acute changes. Patient's pain improved with narcotics but not Toradol. Ultrasound was limited but aspects of liver show increased echogenicity. Discussed with General surgery patient's labs and physical exam and recent history do not seem consistent with infectious cause. Suspect she may have some cirrhosis and elevation in her liver enzymes secondary to this. She does not appear to have a hernia or other changes. They recommend outpatient follow-up for trending of her labs. Patient I discussed decreasing her alcohol intake goal of cessation. Patient states she has been able to stop cold turkey in the past and we discussed if this is difficult for her there are medications that can be helpful. We discussed that there are [facility] causes and recommend patient return for evaluation if new or worsening or changing symptoms. Discharge Plan Departure Patient Disposition: Home Clinical Impression: Elevated LFTs, Abdominal pain Instructions: FLORIN for Abdominal Pain-Adult Activity Restrictions/Additional Instructions: Follow-up with your physician for recheck and to follow your liver enzymes. Your liver enzymes are elevated today this is likely secondary to alcohol use but should be followed. I would recommend decreasing and ultimately stopping your alcohol intake. Your imaging today does not show any changes other than hepatic steatosis or cirrhosis. Take pain medication as prescribed. I would avoid Tylenol for the time being. Prescription sent to [facility] in [place]. Please return for fevers, worsening symptoms, persistent vomiting, lightheaded ness or passing out, new chest pain or shortness of breath, black or bloody stools or other new or concerning symptoms. Prescriptions: New oxycodone 5 mg tablet 5 mg PO QID PRN (Reason: pain) Qty: 10 0RF No Action ibuprofen 800 MG tablet 800 mg PO TIDP PRN (Reason: Pain (Scale Score 1-3)) Qty: 0 0RF tramadol 50 MG tablet 50 mg PO Q4H PRN Qty: 0 0RF hydrocodone-acetaminophen [[place]] 5-325 mg tablet 1 tab PO Q4H PRN (Reason: painful procedure) Qty: 10 0RF famotidine 20 mg tablet 20 mg PO DAILY 0RF hydrocodone-acetaminophen [[place]] 5-325 mg tablet See Rx Instructions .ROUTE .COMPLEX PRN (Reason: painful procedure) Qty: 14 0RF Rx Instructions: Take 1 or 2 pills every 6 hours if needed for pain. May constipate. Referrals: Gauri Rivera DO [Primary Care Provider] -
[2021-09-25] MEDS: HYDROMORPHONE 1 MG INJ 0.5 MG IV (14:54)
[2021-09-25] MEDS: ONDANSETRON 4 MG/2 ML INJ IV (14:54)
--- NOTE | 2021-09-25 15:01 | DI.CT.S_ITS ---
PROCEDURE: CT ABDOMEN PELVIS W CON INDICATIONS: RUQ pain, lump or mass, + LFT's and etoh also TECHNIQUE: After the administration of intravenous contrast, axial sections acquired from the lung bases to the pubic symphysis. Coronal and sagittal reformats were performed. For radiation dose reduction, the following was used: automated exposure control, adjustment of mA and/or kV according to patient size. COMPARISON: [facility], CT, CT ABDOMEN PELVIS W CON, 11/07/2020, 0:12. [facility], CT, CT ABDOMEN PELVIS W CON, 11/11/2018, 7:38. FINDINGS: Image quality: Excellent. Lung bases: Unremarkable. Heart: No significant findings. ABDOMEN: Liver: The liver is diffusely hypoattenuating, consistent with fatty infiltration. Gallbladder: Status post cholecystectomy. Biliary ducts: Mild prominence of the extrahepatic bile ducts is most likely related to the prior cholecystectomy. Pancreas: Unremarkable. Spleen: Unremarkable. Adrenal Glands: Unremarkable. Kidneys and Ureters: Unremarkable. Stomach and Bowel: Stomach, small bowel loops, and colon are unremarkable. Normal appendix. Peritoneum: No abnormal intraperitoneal fluid. No free air. Ventral Wall: No hernias. Abdominal Nodes: No retroperitoneal or mesenteric adenopathy by size criteria. Vessels: Aorta and inferior vena cava are normal in size. PELVIS: Pelvic Organs: The endometrial stripe is within normal limits at less than 0.5 cm on the current exam. Bladder: Unremarkable. Pelvic Nodes: No enlarged lymph nodes. Miscellaneous: No hernias are seen. Bones: There is grade 1 anterolisthesis of L4 on L5 secondary to facet hypertrophy. IMPRESSION: 1. No acute abnormality identified in the abdomen or pelvis. 2. Diffuse severe hepatic steatosis. 3. Status post cholecystectomy. Dictated by: Henrry Moran M.D. on 09/25/2021 at 15:56 Approved by: Henrry Moran M.D. on 09/25/2021 at 16:02
[2021-09-25] MEDS: SODIUM CHLORIDE 0.9% 1,000 ML 1000 ML IV (15:24)
--- NOTE | 2021-09-25 16:10 | DI.US.S_ITS ---
PROCEDURE: US ABDOMEN LIMITED INDICATIONS: RUQ pain, etoh use, elevated LFTs, steatosis on CT TECHNIQUE: Real-time scanning was performed of the abdominal and retroperitoneal organs, with image documentation. COMPARISON: [facility], CT, CT ABDOMEN PELVIS W CON, 09/25/2021, 15:08. [facility], US, US ABDOMEN LIMITED, 11/06/2020, 22:56. FINDINGS: Study is largely nondiagnostic due to overlying bowel gas and body habitus. Peripheral superficial aspects of the liver show increased echogenicity consistent with significant attic fatty infiltration. Gallbladder, common bile duct, pancreas and right kidney were not visualized. IMPRESSION: 1. Severely limited study consistent with hepatic fatty infiltration Approved by: Joaquin Hodge M.D. on 09/25/2021 at 17:04
[2021-09-25] MEDS: KETOROLAC 30 MG/ML VIAL IV (16:14)
[2021-09-25] MEDS: HYDROMORPHONE 1 MG INJ IV (18:03)
== END 2021-09-25 18:59 | disposition home or self-care (01) ==
PROVIDERS: Emergency Provider Emergency Medicine; PCP Student in an Organized Health Care Education/Training Program
DX: R10.11 Right upper quadrant pain (principal); R74.01 Elevation of levels of liver transaminase levels; R11.0 Nausea; R00.0 Tachycardia, unspecified
CPT/HCPCS: 36415; 74177; 76705; 80053; 81003; 83690; 85025; 93005; 93010; 96361; 96374; 96375; 96376; 99284; 99285; J1170; J1885; J2405; Q9967

== ENCOUNTER 2022-04-23 21:01 | Emergency (ER) | payer OTHER, MEDICAID, SELFPAY ==
[2022-04-23] VITALS (7 sets, daily range): BP systolic 173–215; BP diastolic 88–119; PULSE 91–110; RESP 18–24; TEMP 36.7; O2SAT 97–100; BMI 36.0
--- NOTE | 2022-04-23 23:06 | DI.RAD.S_ITS ---
PROCEDURE: XR CHEST 1V INDICATIONS: chest pain TECHNIQUE: One view of the chest was acquired. COMPARISON: [facility], , CHEST 2 VIEW, 06/14/2014, 7:32. FINDINGS: Surgical changes and devices: None. Lungs and pleura: Lungs are clear. There is elevation of the right hemidiaphragm redemonstrated. No pleural effusions or pneumothorax. Mediastinum: Mediastinal contours appear normal. Heart size is normal. Bones and chest wall: No suspicious bony lesions. Overlying soft tissues appear unremarkable. IMPRESSION: 1. No acute cardiopulmonary disease. Dictated by: Ernst Chacon M.D. on 04/24/2022 at 0:40 Approved by: Ernst Chacon M.D. on 04/24/2022 at 0:40
[2022-04-23 23:22] LABS: Alanine Aminotransferase 66 IU/L (<35); Albumin 4.2 g/dL (3.5-5.0); Alkaline Phosphatase 148 U/L (38-126); Aspartate Aminotransferase 107 IU/L (14-36); BUN Creatinine Ratio 29.3 (6-22); Bilirubin Total 0.5 mg/dL (0.2-1.3); Blood Urea Nitrogen 17 mg/dL (7-17); Calcium 8.6 mg/dL (8.4-10.2); Carbon Dioxide 24 mmol/L (22-32); Chloride 104 mmol/L (98-107); Creatine Kinase 135 U/L (30-135); Estimated Glomerular Filt Rate > 60 mL/min (>60); Globulin 4.3 g/dL (1.7-4.1); Glucose 98 mg/dL (70-100); Lipase 207 U/L (23-300); Magnesium 1.7 mg/dL (1.6-2.3); Sodium 139 mmol/L (137-145); Total Protein 8.5 g/dL (6.3-8.2)
[2022-04-23 23:26] LABS: Basophils Absolute Auto 0 /uL (0-100); Eosinophils Absolute Auto 100 /uL (0-450); Neutrophils Absolute Auto 3600 /uL (1500-7000)
[2022-04-23 23:29] LABS: Add Manual Diff / Slide Review NO; Basophils Percent Auto 0.6 % (0-2); Eosinophils Percent Auto 1.3 % (2-4); Hematocrit 43.7 % (36-46); Hemoglobin 15.3 g/dL (12.0-16.0); Lymphocytes Absolute Auto 1600 /uL (1100-4500); Lymphocytes Percent Auto 28.9 % (25-40); Mean Corpuscular Volume 94.4 fL (80-100); Monocytes Absolute Auto 300 /uL (0-900); Monocytes Percent Auto 5.9 % (3-14); Neutrophils Percent Auto 63.3 % (50-75); Platelet Count 165 X10^3/uL (150-400); Red Blood Cell Count 4.63 X10^6/uL (4.0-5.2); Red Cell Distribution Width 12.5 % (11.6-14.8); White Blood Cell Count 5.7 X10^3/uL (4.5-11.0)
[2022-04-23 23:34] LABS: Troponin I < 0.012 ng/mL (0.01-0.034)
[2022-04-23 23:37] LABS: CKMB % Relative Index 1.3 % (1.5-5.0); Creatine Kinase MB 1.82 ng/mL (<2.37); HEMOLYSIS 46 (0-50)
[2022-04-24] VITALS: BP 186/92; PULSE 93; RESP 23; O2SAT 99
[2022-04-24 00:30] VITALS: BP 177/94; PULSE 90; RESP 22; O2SAT 99
--- NOTE | 2022-04-24 00:42 | ED.GENADULT ---
HPI - General Adult General Chief complaint: Dizziness Stated complaint: Thinks reaction to statin just started Time Seen by Provider: 04/23/22 23:43 Source: patient Mode of arrival: Ambulatory History of Present Illness HPI narrative: 61-year-old woman with a history of intermittent diarrhea, reflux, intermittent chronic abdominal pain for a number of years probable fibromyalgia and hyperlipidemia was recently started on 5 mg of rosuvastatin. Within days of starting medication she noticed an increase litany of symptoms including increased body aches, headaches, dizziness, blurry vision, pressure behind her eyes, dry eyes, increased depression due to all of her symptoms, a sense that she is weighted down and is walking through water with increasing general malaise. She has not noticed cough, chest pain palpitations, paresthesias, dysuria or flank pain. Related Data Home Medications Medication Instructions Recorded Confirmed Prilosec 20 mg PO DAILY 04/23/22 04/23/22 colestipol 1 gram tablet 1 g PO BID 04/23/22 04/23/22 rosuvastatin 5 mg tablet 5 mg PO DAILY 04/23/22 04/23/22 tramadol 50 mg tablet 50 mg BID 04/23/22 04/23/22 Allergies Allergy/AdvReac Type Severity Reaction Status Date / Time latex [LATEX] AdvReac Mild RASH FROM Verified 09/25/21 12:45 RUBBER GLOVES erythromycin base AdvReac Unknown VOMITING Verified 09/25/21 12:45 [ERYTHROMYCIN BASE] Review of Systems Review of Systems Narrative: Remainder of complete review of systems is otherwise unremarkable except for that included in the HPI. Patient History Medical History Acid reflux Anxiety Arthritis Chronic back pain Fibromyalgia Hx of lipoma Insomnia Surgical History History of third molar tooth extraction Hx of abdominoplasty Hx of hernia repair Status post bilateral salpingo-oophorectomy (BSO) (08/30/16) Status post dilation and curettage (08/30/16) Status post tubal ligation Family History Mother Hypertension Grandmother Cancer Grandfather Diabetes mellitus Social History marital status: household members: spouse occupational status: unemployed Smoking Status: Never smoker alcohol intake: current substance use type: does not use Smoking Status: Never smoker alcohol intake frequency: 0-2 drinks per day Alcohol type: wine Substance Use Type: does not use Exam Initial Vital Signs Initial Vital Signs: Vital Signs Temperature 98.1 F 04/23/22 21:04 Pulse Rate 110 H 04/23/22 21:04 Respiratory Rate 18 04/23/22 21:04 Blood Pressure 215/119 H 04/23/22 21:04 Pulse Oximetry 100 04/23/22 21:04 Oxygen Delivery Method 04/23/22 21:04 General: Fatigued appearing, in no acute distress. Able to give a complete and coherent history. Well-nourished well-developed HEENT: Moist mucous membranes, normal sclera with reactive pupils, Respiratory: Lungs are clear to auscultation, no wheezing no rales no rhonchi. Full and symmetrical air movement Cardiac: Regular rate and rhythm no murmurs no bruits Abdomen: Soft, nontender, good bowel tones, no flank pain Skin: Warm and dry, no rashes Neurologic: Grossly neurologically intact with no obvious asymmetries or abnormalities Extremities: No trauma, well perfused Psych: Cooperative, appropriate insight and affect Course Orders Ordered: ED Orders 04/23/22 22:55 Complete Blood Count AUTO DIFF Stat Comprehensive Metabolic Panel Stat Lipase Stat Magnesium Stat Troponin & CK Cardiac Panel Stat 04/23/22 23:06 XR chest 1V Stat EKG-12 Lead Stat Vital Signs Vital signs: Vital Signs - 8 hr 04/23/22 21:04 04/23/22 22:55 04/23/22 22:57 Temperature 98.1 F Pulse Rate 110 H 101 H 97 H Respiratory Rate 18 20 22 Blood Pressure 215/119 H Pulse Oximetry 100 100 100 Oxygen Delivery Method Room Air 04/23/22 22:57 04/23/22 23:00 04/23/22 23:01 Temperature Pulse Rate 92 H Respiratory Rate 20 Blood Pressure 182/94 H 173/94 H Pulse Oximetry 100 Oxygen Delivery Method 04/23/22 23:01 04/23/22 23:30 04/23/22 23:32 Temperature Pulse Rate 91 H 94 H Respiratory Rate 24 23 Blood Pressure 199/88 H Pulse Oximetry 99 97 Oxygen Delivery Method 04/23/22 23:32 04/24/22 00:00 04/24/22 00:00 Temperature Pulse Rate 93 H 93 H Respiratory Rate 24 23 Blood Pressure 186/92 H Pulse Oximetry 100 99 Oxygen Delivery Method Medical Decision Making Lab Data Result diagrams: 04/23/22 22:55 04/23/22 22:55 Labs: Lab Results 04/23/22 04/23/22 Range/Units 22:55 22:55 WBC 5.7 (4.5-11.0) X10^3/uL RBC 4.63 (4.0-5.2) X10^6/uL Hgb 15.3 (12.0-16.0) g/dL Hct 43.7 (36-46) % MCV 94.4 (80-100) fL MCH 33.0 (26-34) PG MCHC 35.0 (30-36) % RDW 12.5 (11.6-14.8) % Plt Count 165 (150-400) X10^3/uL Neut % (Auto) 63.3 (50-75) % Lymph % (Auto) 28.9 (25-40) % [place] % (Auto) 5.9 (3-14) % Eos % (Auto) 1.3 L (2-4) % Baso % (Auto) 0.6 (0-2) % Neut # (Auto) 3600 (3448-3643) /uL Lymph # (Auto) 1600 (8368-8751) /uL [place] # (Auto) 300 (0-900) /uL Eos # (Auto) 100 (0-450) /uL Baso # (Auto) 0 (0-100) /uL Sodium 139 (137-145) mmol/L Potassium 4.0 (3.4-5.1) mmol/L Chloride 104 (98-107) mmol/L Carbon Dioxide 24 (22-32) mmol/L BUN 17 (7-17) mg/dL Creatinine 0.58 (0.52-1.04) mg/dL Estimated GFR > 60 (>60) mL/min BUN/Creatinine Ratio 29.3 H (6-22) Glucose 98 (70-100) mg/dL Calcium 8.6 (8.4-10.2) mg/dL Magnesium 1.7 (1.6-2.3) mg/dL Total Bilirubin 0.5 (0.2-1.3) mg/dL AST 107 H (14-36) IU/L ALT 66 H (<35) IU/L Alkaline Phosphatase 148 H (38-126) U/L Total Creatine Kinase 135 (30-135) U/L CK-MB (CK-2) 1.82 (<2.37) ng/mL CK-MB (CK-2) Rel Index 1.3 L (1.5-5.0) % Troponin I < 0.012 (0.01-0.034) ng/mL Total Protein 8.5 H (6.3-8.2) g/dL Albumin 4.2 (3.5-5.0) g/dL Globulin 4.3 H (1.7-4.1) g/dL Albumin/Globulin Ratio 1.0 (1.0-2.8) Lipase 207 (23-300) U/L ECG Data Interpretation: Sinus rhythm at 95 Normal intervals, normal axis No acute ischemic changes MDM Narrative Medical decision making narrative: 61-year-old woman with of long list of systemic complaints coinciding with starting rosuvastatin. She did not take her dose this morning. Blood work is entirely unremarkable. Blood pressure and heart rate have been slightly elevated throughout her emergency room stay. She and her primary care doctor had talked about hypertension and she has been checking at home and is finding blood pressures in the 120-130 systolic over 70 range. Will ask her to continue checking home blood pressures in discussing this with her primary care doctor At this point I do agree with stopping the rosuvastatin to see if it is exacerbating her overall symptoms. She is working with her primary care doctor to try to find a definitive diagnosis. Possibility of chronic fatigue has been discussed, long COVID needs to also be within that differential as well as chronic fatigue syndrome. She may end up with a more rheumatologic diagnosis and probably needs more thorough psychiatric discussion regarding depression and anxiety as well. At this point there are no life-threatening issues identified, we clearly reviewed all of her lab work and findings. Reassurance is given, questions are answered and she is safe for home discharge Discharge Plan Departure Patient Disposition: Home Clinical Impression: Chronic fatigue and malaise Instructions: DI for Chronic Fatigue Syndrome Activity Restrictions/Additional Instructions: Thank you for coming in today I am sorry you are suffering so much with this dramatic fatigue. Your lab work was actually very reassuring. It is always a bit suspicious when adding a new medication and new symptoms occur simultaneously. I do agree with stopping the cholesterol medication as you have already done. Please follow-up with your primary care doctor. Symptoms like these can sometimes be very difficult to eventually diagnosis and clearly are difficult to live with. Eventually talking with the corrugator operator may be of some benefit. A possibility of long COVID syndrome after your mild COVID infection back in July is also there. It does seem that the severity of your initial disease is not correlated with the severity of chronic symptoms. Your blood pressure was elevated throughout your emergency room stay. He said that you have been monitoring this with her primary care doctor and numbers have been checking at home have been much more reasonable. Please continue to check home numbers. In the meantime, please make sure that your allowing yourself plenty of rest, staying well hydrated and doing all that you can to follow healthy diet. Prescriptions: No Action tramadol 50 mg tablet 50 mg BID colestipol 1 gram tablet 1 g PO BID rosuvastatin 5 mg tablet 5 mg PO DAILY Prilosec 20 mg 20 mg PO DAILY Rx Instructions: 1-2 tab Referrals: Gauri Rivera DO [Primary Care Provider] -
[2022-04-24 01:00] VITALS: BP 170/88; PULSE 90; RESP 22; O2SAT 100
== END 2022-04-24 01:13 | disposition home or self-care (01) ==
PROVIDERS: Emergency Provider Emergency Medicine; PCP Student in an Organized Health Care Education/Training Program
DX: R53.82 Chronic fatigue, unspecified (principal); Z86.16 Personal history of COVID-19; R07.9 Chest pain, unspecified
CPT/HCPCS: 36415; 71045; 80053; 82550; 82553; 83690; 83735; 84484; 85025; 93005; 93010; 99283; 99284

== ENCOUNTER → 2022-08-29 13:22 | Outpatient (CLI) | payer OTHER, MEDICAID, SELFPAY ==
--- NOTE | 2022-08-29 | DI.MG.S_ITS ---
BILATERAL DIGITAL SCREENING MAMMOGRAM 3D/2D WITH CAD: 08/29/2022 CLINICAL: Routine screening. Family history of breast cancer. Comparison is made to exams dated: 10/30/2018 mammogram, 12/13/2016 mammogram, and 12/07/2015 mammogram - [facility]. There are scattered areas of fibroglandular density in both breasts (category b / 25%-50% glandular tissue). Current study was also evaluated with a Computer Aided Detection (CAD) system. No significant masses, calcifications, or other findings are seen in either breast. There has been no significant interval change. IMPRESSION: NEGATIVE There is no mammographic evidence of malignancy. A 1 year screening mammogram is recommended. Based on the Tyrer Cuzick model (a risk assessment model) the patient's lifetime risk is 9.0% and her 10 year risk is 3.5%. According to the ACR, ACS, and NCCN guidelines, an annual breast MRI exam along with mammogram is recommended if the patient's lifetime risk is 20% or greater. This exam was interpreted at Station ID: [id number]. NOTE: For mammograms, a report in lay terms will be sent to the patient. Approximately 15% of breast malignancies will not be visualized mammographically. In the management of a palpable breast mass, a negative mammogram must not discourage biopsy of a clinically suspicious lesion. Electronically Signed By: Luis Antonio Palafox M.D., jr/erica:08/29/2022 15:31:21 copy to: Mojgan Reagan letter sent: Normal Exam ACR BI-RADS Category 1: Negative 3341F
== END ==
PROVIDERS: PCP Student in an Organized Health Care Education/Training Program; Referring Provider Student in an Organized Health Care Education/Training Program; Visit Provider Student in an Organized Health Care Education/Training Program
DX: Z12.31 Encounter for screening mammogram for malignant neoplasm of breast (principal); Z80.3 Family history of malignant neoplasm of breast
CPT/HCPCS: 77063; 77067

== ENCOUNTER 2022-10-28 22:37 | Observation (INO) | payer OTHER, MEDICAID, SELFPAY ==
[2022-10-28 22:48] VITALS: BP 180/88; PULSE 87; RESP 16; TEMP 36.2; O2SAT 100; BMI 32.5
--- NOTE | 2022-10-28 22:57 | DI.CT.S_ITS ---
PROCEDURE: CT STROKE INDICATIONS: Positive BE-FAST, Stroke symptoms TECHNIQUE: Noncontrast 4.5 mm thick angled axial sections acquired from the foramen magnum to the vertex, with coronal reformats. For radiation dose reduction, the following was used: automated exposure control, adjustment of mA and/or kV according to patient size. COMPARISON: None. FINDINGS: Image quality: Excellent. CSF spaces: Basal cisterns are patent. No extra-axial fluid collections. Ventricles are normal in size and shape. Brain: No intracranial hemorrhage, mass, or mass effect. Seo-white matter interface appears preserved. Skull and face: Calvarium and visualized facial bones are intact, without suspicious lesions. Sinuses: Visualized sinuses and mastoids are clear. IMPRESSION: 1. No acute intracranial abnormality. Specifically, no intracranial hemorrhage or other imaging contraindications to tPA. Findings discussed with Dr. Mendoza on 10/28/2022 at 11:10 p.m.. This study fulfills neurological imaging criteria for inclusion or exclusion of acute stroke therapies based on available published neurological imaging guidelines. Dictated by: Ernst Chacon M.D. on 10/28/2022 at 23:10 Approved by: Ernst Chacon M.D. on 10/28/2022 at 23:12
--- NOTE | 2022-10-28 22:57 | DI.RAD.S_ITS ---
PROCEDURE: XR CHEST 1V INDICATIONS: Possible stroke TECHNIQUE: One view of the chest was acquired. COMPARISON: [facility], CR, XR CHEST 1V, 04/23/2022, 23:25. FINDINGS: Surgical changes and devices: None. Lungs and pleura: Lungs are clear. No pleural effusions or pneumothorax. Mediastinum: Mediastinal contours appear normal. Heart size is normal. Bones and chest wall: No suspicious bony lesions. Overlying soft tissues appear unremarkable. IMPRESSION: 1. No acute cardiopulmonary disease. Dictated by: Ernst Chacon M.D. on 10/29/2022 at 1:02 Approved by: Ernst Chacon M.D. on 10/29/2022 at 1:03
--- NOTE | 2022-10-28 22:58 | DI.CT.S_ITS ---
PROCEDURE: CT ANGIO HEAD AND NECK INDICATIONS: headache, vision loss, dizziness TECHNIQUE: After the administration of intravenous contrast, 1 mm thick sections acquired from the aortic arch through the [place] of [place]. Post-contrast 4.5 mm thick sections then re-acquired from the foramen magnum to the vertex. 3-dimensional wivwrzj-efmlevubq-widgapbohi (MIP) and/or volume rendering reformats were acquired of the central intracranial vasculature and neck separately. For radiation dose reduction, the following was used: automated exposure control, adjustment of mA and/or kV according to patient size. COMPARISON: [facility], CT, CT STROKE, 10/28/2022, 22:59. FINDINGS: Image quality: Excellent. BRAIN: CSF spaces: Basal cisterns are patent. No extra-axial fluid collections. Ventricles are normal in size and shape. Brain: No intracranial hematoma collections, mass, or mass effect. Seo-white matter interface appears preserved. No abnormal intracranial enhancement. Skull and face: Calvarium and facial bones appear intact, without suspicious lesions. Orbits appear normal. Sinuses: Sinuses and mastoids are clear. HEAD CT ANGIOGRAPHY: Anterior circulation: Intracranial internal carotid arteries are normal in size and appear patent bilaterally. There is mild atherosclerotic calcification along the cavernous segments of the internal carotid arteries. The paired anterior cerebral arteries appear patent bilaterally. The anterior communicating artery also appears patent. The middle cerebral arteries appear patent bilaterally. No high-grade stenosis, occlusion, or filling defects. No cerebral aneurysms identified. Posterior circulation: Visualized portions of the vertebral arteries demonstrate normal caliber, and join to form a patent basilar artery. The posterior cerebral arteries appears patent bilaterally. No high-grade stenosis, occlusion, or filling defects. No cerebral aneurysms identified. NECK CT ANGIOGRAPHY: Carotid system: The great vessels demonstrate a conventional anatomy as they arise from the aortic arch. The origins of the common carotid arteries appear patent. The common carotid arteries demonstrate normal caliber and courses. The bifurcation regions are both widely patent. The internal carotid arteries demonstrate normal calibers and courses. Posterior circulation: The origins of the vertebral arteries both appear patent. The more superior extracranial portions of both vertebral arteries also demonstrate normal courses and calibers. They join to form a patent basilar artery. Soft tissues: Visualized neck soft tissues demonstrate no suspicious abnormalities. Bones: No suspicious bony lesions. Visualized cervical spine demonstrates straightening of the cervical lordosis. There is multilevel degenerative disc disease and facet joint arthropathy. IMPRESSION: 1. No high-grade stenosis or occlusion of the central intracranial arteries. 2. No high-grade stenosis or occlusion of the head and neck arteries. The carotid bulbs are widely patent. Any quantitative measurements of stenosis were performed using NASCET criteria. Dictated by: Ernst Chacon M.D. on 10/28/2022 at 23:21 Approved by: Ernst Chacon M.D. on 10/28/2022 at 23:25
--- NOTE | 2022-10-28 23:25 | ED.HA ---
HPI - Headache General Chief Complaint: Headache Stated Complaint: headache/vision is weird Time Seen by Provider: 10/28/22 23:16 History of Present Illness HPI Narrative: Patient is a 62-year-old female history of hyperlipidemia, hypertension and tinnitus presenting today with headache and visual loss. She reports last known well at 9:10 p.m.. She got pounding headache and has a difficult time seeing out of her left eye. She denies any nausea or vomiting. No difficulty speaking no numbness tingling or weakness no ataxia although she does have some difficulty with ambulation. Related Data Home Medications Medication Instructions Recorded Confirmed Prilosec 20 mg PO DAILY 04/23/22 10/29/22 colestipol 1 gram tablet 1 g PO BID 04/23/22 10/29/22 tramadol 50 mg tablet 50 mg PO BID 04/23/22 10/29/22 chlorthalidone 25 mg tablet 12.5 mg PO DAILY 10/29/22 10/29/22 hydroxyzine HCl 25 mg tablet 25 mg PO BEDTIME 10/29/22 10/29/22 pravastatin 10 mg tablet 10 mg PO DAILY 10/29/22 10/29/22 Allergies Allergy/AdvReac Type Severity Reaction Status Date / Time latex [LATEX] AdvReac Mild RASH FROM Verified 10/28/22 22:50 RUBBER GLOVES erythromycin base AdvReac Unknown VOMITING Verified 10/28/22 22:50 [ERYTHROMYCIN BASE] Review of Systems Review of Systems ROS Unobtainable: All systems reviewed & are unremarkable except as noted in HPI and below Patient History Medical History Acid reflux Anxiety Arthritis Chronic back pain Fibromyalgia Hx of lipoma Insomnia Surgical History History of third molar tooth extraction Hx of abdominoplasty Hx of hernia repair Status post bilateral salpingo-oophorectomy (BSO) (08/30/16) Status post dilation and curettage (08/30/16) Status post tubal ligation Family History Mother Hypertension Grandmother Cancer Grandfather Diabetes mellitus Social History marital status: household members: spouse occupational status: unemployed Smoking Status: Never smoker alcohol intake: current substance use type: does not use Smoking Status: Never smoker alcohol intake frequency: 0-2 drinks per day Alcohol type: wine Substance Use Type: does not use Exam Initial Vital Signs Initial Vital Signs: Vital Signs Temperature 97.2 F L 10/28/22 22:48 Pulse Rate 87 10/28/22 22:48 Respiratory Rate 16 10/28/22 22:48 Blood Pressure 180/88 H 10/28/22 22:48 Pulse Oximetry 100 10/28/22 22:48 Oxygen Delivery Method Room Air 10/28/22 22:48 GENERAL: Alert pleasant 62-year-old female and in no acute distress. HEENT: Head atraumatic,EOMI, pupils reactive, face symmetric, moist mucous membranes CARDIOVASCULAR: Regular rate and rhythm without murmurs, rubs or gallops. RESPIRATORY: Breath sounds equal bilaterally, no wheezes rales or rhonchi. ABDOMEN: Soft, nontender. Normoactive bowel sounds all 4 quadrants. No guarding or rebound. EXTREMITIES: Normal range of motion, no clubbing or edema. Neurovascularly intact NEUROLOGICAL: Alert and oriented x4.Normal gait and speech. Cranial nerves II through XII grossly intact. Good [id number], good [id number], strength equal bilaterally, no dysarthria or aphasia, sensation in tact to soft touch bilaterally,, no facial droop SKIN: Warm, dry, no laceration, no petechiae, no rashes or lesions. Scores NIH Stroke Scale Level of Conciousness: Alert, keenly responsive Ask month/age: Answers both questions correctly. Open/close eyes, close hand: Performs both tasks correctly Best gaze horizontal: Normal Visual hubbard: Partial hemianopia Facial palsy: Normal symetrical movement Left arm drift: No drift for full 10 sec Right arm drift: No drift for full 10 sec Left leg drift: No drift for full 5 sec Right leg drift: No drift for full 5 sec Limb ataxia: Absent Sensory on face/arms/legs: Normal, no sensory loss Best language: No aphasia, normal Dysarthria: Normal Extinction or inattention: No abnormality Total NIH Stroke scale score: 1 Course Orders Ordered: ED Orders 10/28/22 22:57 CT Stroke Stat XR chest 1V Stat 10/28/22 22:58 CT angio head and neck Stat 10/28/22 23:17 Urine Drug Screen, Rapid Stat 10/28/22 23:36 Complete Blood Count AUTO DIFF Stat Comprehensive Metabolic Panel Stat Ethanol (ETOH) Stat Magnesium Stat PTT Partial Thromboplastin James Stat Prothrombin Time INR Stat Troponin & CK Cardiac Panel Stat 10/29/22 00:20 Urinalysis and Microscopic Stat Urine Drug Screen, Rapid Stat 10/29/22 03:27 COVID19 - ADMIT ([employer] swab/PCR) Stat Acetaminophen (Acetaminophen 325 Mg Tablet) 650 mg PO Q6H PRN PRN Reason: Fever/Mild Pain (1-3) Al Hydrox/Mg Hydrox/Simethicone (Mag Hydrox/Alum/Simeth 30 Ml Udc) 30 ml PO Q6HR PRN PRN Reason: Dyspepsia Aspirin (Aspirin Ec 81 Mg Tablet) 81 mg PO DAILY [facility] Atorvastatin Calcium (Atorvastatin 20 Mg Tablet) 20 mg PO BEDTIME [facility] Chlorthalidone (Chlorthalidone 25 Mg Tablet) 12.5 mg PO DAILY [facility] Clopidogrel Bisulfate (Clopidogrel 75 Mg Tablet) 75 mg PO DAILY [facility] Enoxaparin Sodium (Enoxaparin 40 Mg/0.4 Ml Syringe) 40 mg SUBCUT DAILY [facility] Hydroxyzine Pamoate (Hydroxyzine Pamoate 25 Mg Capsule) 25 mg PO BEDTIME [facility] Naloxone HCl (Naloxone 0.4 Mg/Ml Vial) 0.2 mg IV Q2MIN PRN PRN Reason: Opiate Reversal Ondansetron HCl (Ondansetron 4 Mg/2 Ml Inj) 4 mg IV NOW PRN PRN Reason: Nausea And Vomiting Ondansetron HCl (Ondansetron 4 Mg/2 Ml Inj) 4 mg IV Q8HR PRN PRN Reason: Nausea And Vomiting Oxycodone HCl (Oxycodone Ir 5 Mg Tablet) 5 mg PO Q3H PRN PRN Reason: Pain, Moderate (4-10) Last Admin: 10/29/22 05:22 Dose: 5 mg Documented By: RUTHIE Tramadol HCl (Tramadol 50 Mg Tablet) 50 mg PO BID [facility] Discontinued Medications Acetaminophen (Acetaminophen 325 Mg Tablet) 975 mg PO NOW ONE Stop: 10/29/22 00:12 Last Admin: 10/29/22 00:34 Dose: 975 mg Documented By: ARMAND Aspirin (Aspirin 81 Mg Chew Tab) 324 mg PO NOW ONE Stop: 10/29/22 00:12 Last Admin: 10/29/22 00:34 Dose: 324 mg Documented By: ARMAND Clopidogrel Bisulfate (Clopidogrel 75 Mg Tablet) 75 mg PO NOW ONE Stop: 10/29/22 00:12 Last Admin: 10/29/22 00:35 Dose: 75 mg Documented By: ARMAND Alteplase, Recombinant (Activase) 69.8 mg in 69.8 mls @ 69.8 mls/hr 0.81 mg/kg (69.8 mg) IV NOW ONE Stop: 10/29/22 00:28 Last Admin: 10/28/22 23:50 Dose: Not Given Documented By: WYATT Alteplase, Recombinant (Activase) 7.8 mg in 7.8 mls @ 468 mls/hr 0.09 mg/kg (7.8 mg) IV NOW ONE Stop: 10/28/22 23:30 Last Admin: 10/28/22 23:51 Dose: Not Given Documented By: WYATT Ondansetron HCl (Ondansetron 4 Mg Odt) 4 mg SL NOW PRN PRN Reason: Nausea And Vomiting Potassium Chloride (Potassium Chloride 20 Meq Tab) 20 meq PO NOW ONE Stop: 10/29/22 06:07 Tramadol HCl (Tramadol 50 Mg Tablet) 50 mg PO NOW ONE Stop: 10/29/22 04:58 Last Admin: 10/29/22 05:14 Dose: 50 mg Documented By: RUTHIE Trazodone HCl (Trazodone 50 Mg Tablet) 25 mg PO BEDTIME [facility] Vital Signs Vital signs: Vital Signs - 8 hr 10/28/22 22:48 10/28/22 23:45 10/29/22 00:00 Temperature 97.2 F L Pulse Rate 87 92 H 79 Respiratory Rate 16 Blood Pressure 180/88 H 176/98 H Pulse Oximetry 100 90 L 100 Oxygen Delivery Method Room Air 10/29/22 00:30 10/29/22 00:45 10/29/22 01:00 Temperature Pulse Rate 80 79 81 Respiratory Rate 11 L 10 L Blood Pressure Pulse Oximetry 99 99 98 Oxygen Delivery Method 10/29/22 01:15 Temperature Pulse Rate 75 Respiratory Rate 10 L Blood Pressure Pulse Oximetry 100 Oxygen Delivery Method MDM - Headache Lab Data 10/28/22 23:36 10/29/22 05:54 Labs: Lab Results 03/10/28/22 10/28/22 Range/Units 05:30 23:17 23:36 WBC 7.1 (4.5-11.0) X10^3/uL RBC 4.52 (4.0-5.2) X10^6/uL Hgb 15.0 (12.0-16.0) g/dL Hct 42.0 (36-46) % MCV 92.9 (80-100) fL MCH 33.2 (26-34) PG MCHC 35.7 (30-36) % RDW 12.6 (11.6-14.8) % Plt Count 168 (150-400) X10^3/uL Neut % (Auto) 59.8 (50-75) % Lymph % (Auto) 27.7 (25-40) % [place] % (Auto) 9.2 (3-14) % Eos % (Auto) 2.5 (2-4) % Baso % (Auto) 0.8 (0-2) % Neut # (Auto) 4300 (1345-6720) /uL Lymph # (Auto) 2000 (8433-0646) /uL [place] # (Auto) 700 (0-900) /uL Eos # (Auto) 200 (0-450) /uL Baso # (Auto) 100 (0-100) /uL PT (10.1-12.7) SECONDS INR (0.9-1.3) APTT (26-36) SECONDS Sodium (137-145) mmol/L Potassium (3.4-5.1) mmol/L Chloride (98-107) mmol/L Carbon Dioxide (22-32) mmol/L BUN (7-17) mg/dL Creatinine (0.52-1.04) mg/dL Estimated GFR (>60) mL/min BUN/Creatinine Ratio (6-22) Glucose (80-110) mg/dL Calcium (8.4-10.2) mg/dL Magnesium Cancelled Total Bilirubin (0.2-1.3) mg/dL AST (14-36) IU/L ALT (<35) IU/L Alkaline Phosphatase (38-126) U/L Total Creatine Kinase (30-135) U/L CK-MB (CK-2) CK-MB (CK-2) Rel Index Troponin I (0.01-0.034) ng/mL Total Protein (6.3-8.2) g/dL Albumin (3.5-5.0) g/dL Globulin (1.7-4.1) g/dL Albumin/Globulin Ratio (1.0-2.8) Urine Color Urine Appearance Urine pH (4.5-8.0) Ur Specific [place] (1.000-1.035) Urine Protein (Negative) Urine Glucose (UA) (Negative) g/dL Urine Ketones (NEGATIVE) Urine Occult Blood (Negative) Urine Nitrate (Negative) Urine Bilirubin (NEGATIVE) Urine Urobilinogen (0.2) E.U./dL Ur Leukocyte Esterase (NEGATIVE) Urine RBC (0-5/HPF) Urine WBC (0-5/HPF) Urine Bacteria (None) Ur Culture Indicated? U Opiates 300ng/mL cut Negative (Negative) Ur Oxycodone Screen Negative (Negative) Urine Methadone Screen Negative (Negative) Ur Barbiturates Screen Negative (Negative) U Tricyclic Antidepress Negative (Negative) Ur Phencyclidine Scrn Negative (Negative) Ur Amphetamines Screen Negative (Negative) U Methamphetamines Scrn Negative (Negative) Ur MDMA Scrn (Ecstasy) Negative (Negative) U Benzodiazepines Scrn Negative (Negative) Urine Cocaine Screen Negative (Negative) U Marijuana (THC) Screen Positive H (Negative) Ethyl Alcohol ( - 10) mg/dL 10/28/22 10/28/22 10/28/22 Range/Units 23:36 23:36 23:36 WBC (4.5-11.0) X10^3/uL RBC (4.0-5.2) X10^6/uL Hgb (12.0-16.0) g/dL Hct (36-46) % MCV (80-100) fL MCH (26-34) PG MCHC (30-36) % RDW (11.6-14.8) % Plt Count (150-400) X10^3/uL Neut % (Auto) (50-75) % Lymph % (Auto) (25-40) % [place] % (Auto) (3-14) % Eos % (Auto) (2-4) % Baso % (Auto) (0-2) % Neut # (Auto) (3394-2611) /uL Lymph # (Auto) (8770-7863) /uL [place] # (Auto) (0-900) /uL Eos # (Auto) (0-450) /uL Baso # (Auto) (0-100) /uL PT 11.7 (10.1-12.7) SECONDS INR 1.0 (0.9-1.3) APTT 35 (26-36) SECONDS Sodium 131 L (137-145) mmol/L Potassium 3.2 L (3.4-5.1) mmol/L Chloride 91 L (98-107) mmol/L Carbon Dioxide 34 H (22-32) mmol/L BUN 8 (7-17) mg/dL Creatinine 0.58 (0.52-1.04) mg/dL Estimated GFR > 60 (>60) mL/min BUN/Creatinine Ratio 13.8 (6-22) Glucose 100 (80-110) mg/dL Calcium 8.9 (8.4-10.2) mg/dL Magnesium 2.0 Total Bilirubin 0.6 (0.2-1.3) mg/dL AST 55 H (14-36) IU/L ALT 48 H (<35) IU/L Alkaline Phosphatase 102 (38-126) U/L Total Creatine Kinase 97 (30-135) U/L CK-MB (CK-2) TNP CK-MB (CK-2) Rel Index TNP Troponin I < 0.012 (0.01-0.034) ng/mL Total Protein 7.8 (6.3-8.2) g/dL Albumin 4.2 (3.5-5.0) g/dL Globulin 3.6 (1.7-4.1) g/dL Albumin/Globulin Ratio 1.2 (1.0-2.8) Urine Color Urine Appearance Urine pH (4.5-8.0) Ur Specific [place] (1.000-1.035) Urine Protein (Negative) Urine Glucose (UA) (Negative) g/dL Urine Ketones (NEGATIVE) Urine Occult Blood (Negative) Urine Nitrate (Negative) Urine Bilirubin (NEGATIVE) Urine Urobilinogen (0.2) E.U./dL Ur Leukocyte Esterase (NEGATIVE) Urine RBC (0-5/HPF) Urine WBC (0-5/HPF) Urine Bacteria (None) Ur Culture Indicated? U Opiates 300ng/mL cut (Negative) Ur Oxycodone Screen (Negative) Urine Methadone Screen (Negative) Ur Barbiturates Screen (Negative) U Tricyclic Antidepress (Negative) Ur Phencyclidine Scrn (Negative) Ur Amphetamines Screen (Negative) U Methamphetamines Scrn (Negative) Ur MDMA Scrn (Ecstasy) (Negative) U Benzodiazepines Scrn (Negative) Urine Cocaine Screen (Negative) U Marijuana (THC) Screen (Negative) Ethyl Alcohol < 10 ( - 10) mg/dL 10/29/22 10/29/22 Range/Units 00:20 00:20 WBC (4.5-11.0) X10^3/uL RBC (4.0-5.2) X10^6/uL Hgb (12.0-16.0) g/dL Hct (36-46) % MCV (80-100) fL MCH (26-34) PG MCHC (30-36) % RDW (11.6-14.8) % Plt Count (150-400) X10^3/uL Neut % (Auto) (50-75) % Lymph % (Auto) (25-40) % [place] % (Auto) (3-14) % Eos % (Auto) (2-4) % Baso % (Auto) (0-2) % Neut # (Auto) (4807-5332) /uL Lymph # (Auto) (0116-2469) /uL [place] # (Auto) (0-900) /uL Eos # (Auto) (0-450) /uL Baso # (Auto) (0-100) /uL PT (10.1-12.7) SECONDS INR (0.9-1.3) APTT (26-36) SECONDS Sodium (137-145) mmol/L Potassium (3.4-5.1) mmol/L Chloride (98-107) mmol/L Carbon Dioxide (22-32) mmol/L BUN (7-17) mg/dL Creatinine (0.52-1.04) mg/dL Estimated GFR (>60) mL/min BUN/Creatinine Ratio (6-22) Glucose (80-110) mg/dL Calcium (8.4-10.2) mg/dL Magnesium Total Bilirubin (0.2-1.3) mg/dL AST (14-36) IU/L ALT (<35) IU/L Alkaline Phosphatase (38-126) U/L Total Creatine Kinase (30-135) U/L CK-MB (CK-2) CK-MB (CK-2) Rel Index Troponin I (0.01-0.034) ng/mL Total Protein (6.3-8.2) g/dL Albumin (3.5-5.0) g/dL Globulin (1.7-4.1) g/dL Albumin/Globulin Ratio (1.0-2.8) Urine Color Yellow Urine Appearance Clear Urine pH 6.5 (4.5-8.0) Ur Specific [place] <=1.005 (1.000-1.035) Urine Protein Negative (Negative) Urine Glucose (UA) Negative (Negative) g/dL Urine Ketones Negative (NEGATIVE) Urine Occult Blood Negative (Negative) Urine Nitrate Negative (Negative) Urine Bilirubin Negative (NEGATIVE) Urine Urobilinogen 0.2 (0.2) E.U./dL Ur Leukocyte Esterase Negative (NEGATIVE) Urine RBC None seen (0-5/HPF) Urine WBC None seen (0-5/HPF) Urine Bacteria None seen (None) Ur Culture Indicated? Cult not indicated U Opiates 300ng/mL cut Negative (Negative) Ur Oxycodone Screen Negative (Negative) Urine Methadone Screen Negative (Negative) Ur Barbiturates Screen Negative (Negative) U Tricyclic Antidepress Negative (Negative) Ur Phencyclidine Scrn Negative (Negative) Ur Amphetamines Screen Negative (Negative) U Methamphetamines Scrn Negative (Negative) Ur MDMA Scrn (Ecstasy) Negative (Negative) U Benzodiazepines Scrn Negative (Negative) Urine Cocaine Screen Negative (Negative) U Marijuana (THC) Screen Positive H (Negative) Ethyl Alcohol ( - 10) mg/dL Imaging Data CTA - brain/neck: Radiologist's Impression: PROCEDURE:? CT ANGIO HEAD AND NECK ? INDICATIONS:? headache, vision loss, dizziness ? TECHNIQUE:? After the administration of intravenous contrast, 1 mm thick sections acquired from the aortic arch through the [place] of [place].? Post-contrast 4.5 mm thick sections then re-acquired from the foramen magnum to the vertex.? 3-dimensional [id number] (MIP) and/or volume rendering reformats were acquired of the central intracranial vasculature and neck separately. For radiation dose reduction, the following was used:? automated exposure control, adjustment of mA and/or kV according to patient size.? ? COMPARISON:? [facility], CT, CT STROKE, 10/28/2022, 22:59. ? FINDINGS:? Image quality:? Excellent.? ? BRAIN:? CSF spaces:? Basal cisterns are patent.? No extra-axial fluid collections.? Ventricles are normal in size and shape.? ? Brain:? No intracranial hematoma collections, mass, or mass effect.? Seo-white matter interface appears preserved.? No abnormal intracranial enhancement.? ? Skull and face:? Calvarium and facial bones appear intact, without suspicious lesions.? Orbits appear normal.? ? Sinuses:? Sinuses and mastoids are clear.? ? HEAD CT ANGIOGRAPHY:? Anterior circulation:? Intracranial internal carotid arteries are normal in size and appear patent bilaterally.? There is mild atherosclerotic calcification along the cavernous segments of the internal carotid arteries.? The paired anterior cerebral arteries appear patent bilaterally.? The anterior communicating artery also appears patent. The middle cerebral arteries appear patent bilaterally.? No high-grade stenosis, occlusion, or filling defects.? No cerebral aneurysms identified. ? Posterior circulation:? Visualized portions of the vertebral arteries demonstrate normal caliber, and join to form a patent basilar artery.? The posterior cerebral arteries appears patent bilaterally.? No high-grade stenosis, occlusion, or filling defects.? No cerebral aneurysms identified. ? NECK CT ANGIOGRAPHY:? Carotid system:? The great vessels demonstrate a conventional anatomy as they arise from the aortic arch.? The origins of the common carotid arteries appear patent.? The common carotid arteries demonstrate normal caliber and courses.? The bifurcation regions are both widely patent.? The internal carotid arteries demonstrate normal calibers and courses.? ? Posterior circulation:? The origins of the vertebral arteries both appear patent.? The more superior extracranial portions of both vertebral arteries also demonstrate normal courses and calibers.? They join to form a patent basilar artery.? ? Soft tissues:? Visualized neck soft tissues demonstrate no suspicious abnormalities.? ? Bones:? No suspicious bony lesions.? Visualized cervical spine demonstrates straightening of the cervical lordosis.? There is multilevel degenerative disc disease and facet joint arthropathy.? ? ? IMPRESSION:? ? 1. No high-grade stenosis or occlusion of the central intracranial arteries. ? 2. No high-grade stenosis or occlusion of the head and neck arteries.? The carotid bulbs are widely patent. ? Any quantitative measurements of stenosis were performed using NASCET criteria.? ? ? Dictated by: Ernst Chacon M.D. on 10/28/2022 at 23:21 CT scan - head: Radiologist's Impression: PROCEDURE:? CT STROKE ? INDICATIONS:? Positive BE-FAST, Stroke symptoms ? TECHNIQUE:? Noncontrast 4.5 mm thick angled axial sections acquired from the foramen magnum to the vertex, with coronal reformats.? For radiation dose reduction, the following was used:? automated exposure control, adjustment of mA and/or kV according to patient size.? ? COMPARISON:? None. ? FINDINGS:? Image quality:? Excellent.? ? CSF spaces:? Basal cisterns are patent.? No extra-axial fluid collections.? Ventricles are normal in size and shape.? ? Brain:? No intracranial hemorrhage, mass, or mass effect.? Seo-white matter interface appears preserved.? ? Skull and face:? Calvarium and visualized facial bones are intact, without suspicious lesions.? ? Sinuses:? Visualized sinuses and mastoids are clear.? ? IMPRESSION:? ? 1. No acute intracranial abnormality.? Specifically, no intracranial hemorrhage or other imaging contraindications to tPA. ? Findings discussed with Dr. Mendoza on 10/28/2022 at 11:10 p.m.. ? This study fulfills neurological imaging criteria for inclusion or exclusion of acute stroke therapies based on available published neurological imaging guidelines.? ? ? Dictated by: Ernst Chacon M.D. on 10/28/2022 at 23:10 ? ? Chest x-ray: Radiologist's Impression: PROCEDURE:? XR CHEST 1V ? INDICATIONS:? Possible stroke ? TECHNIQUE:? One view of the chest was acquired.? ? COMPARISON:? [facility], XR CHEST 1V, 04/23/2022, 23:25. ? FINDINGS:? ? Surgical changes and devices:? None.? ? Lungs and pleura:? Lungs are clear.? No pleural effusions or pneumothorax.? ? Mediastinum:? Mediastinal contours appear normal.? Heart size is normal.? ? Bones and chest wall:? No suspicious bony lesions.? Overlying soft tissues appear unremarkable.? ? IMPRESSION:? ? 1.? No acute cardiopulmonary disease. ? ? ? Dictated by: Ernst Chacon M.D. on 10/29/2022 at 1:02 ?? MDM Narrative Medical decision making narrative: Patient is a 62-year-old female presenting to with headache and left hemianopsia. Concern for stroke she is also found to be hypertensive with a blood pressure 180/80. Head CT CT angio are negative. She is within the window for tPA. NIH stroke scale 1 23:15Tele stroke consulted Dr. Licona, he agrees tPA is probably indicated. He does a video consult. Patient now reports that vision is improving longer a candidate for tPA. She is still having a mild headache. Dr. Licona recommended both aspirin and Plavix and possibly Tylenol for headache. Patient is up and ambulatory to restroom. Jesus GRAY updated patient's symptoms test results kindly accepts patient Discharge Plan Departure Patient Disposition: Admitted as Observation Clinical Impression: Brain TIA Admit Date/Time: 10/29/22 01:46 Admit Provider: Crystal Lee
[2022-10-28 23:45] VITALS: BP 176/98; PULSE 92; O2SAT 90
[2022-10-28 23:46] LABS: UR Morphine/Opiate cutoff 300 Negative (Negative); Ur Creatinine Normal (Normal); Ur Specific Gravity Normal (Normal); Urine Amphetamines Negative (Negative); Urine Barbiturates Negative (Negative); Urine Benzodiazepines Negative (Negative); Urine Cocaine Negative (Negative); Urine MDMA Negative (Negative); Urine Methadone Negative (Negative); Urine Methamphetamines Negative (Negative); Urine Oxycodone Negative (Negative); Urine Phencyclidine Negative (Negative); Urine Tetrahydrocannabinol Positive (Negative); Urine Tricyclic Antidepressant Negative (Negative); Urine pH Normal (Normal)
[2022-10-28 23:49] LABS: Prothrombin Time 11.7 SECONDS (10.1-12.7)
[2022-10-28 23:50] LABS: Add Manual Diff / Slide Review NO; Basophils Absolute Auto 100 /uL (0-100); Basophils Percent Auto 0.8 % (0-2); Eosinophils Absolute Auto 200 /uL (0-450); Eosinophils Percent Auto 2.5 % (2-4); Lymphocytes Absolute Auto 2000 /uL (1100-4500); Lymphocytes Percent Auto 27.7 % (25-40); Mean Corpuscular HGB Conc 35.7 % (30-36); Mean Corpuscular Hemoglobin 33.2 PG (26-34); Mean Corpuscular Volume 92.9 fL (80-100); Monocytes Absolute Auto 700 /uL (0-900); Monocytes Percent Auto 9.2 % (3-14); Neutrophils Absolute Auto 4300 /uL (1500-7000); Neutrophils Percent Auto 59.8 % (50-75); Platelet Count 168 X10^3/uL (150-400); Red Blood Cell Count 4.52 X10^6/uL (4.0-5.2); Red Cell Distribution Width 12.6 % (11.6-14.8); White Blood Cell Count 7.1 X10^3/uL (4.5-11.0)
[2022-10-28 23:52] LABS: PTT Partial Thromboplastin Tim 35 SECONDS (26-36)
[2022-10-28 23:53] LABS: Alanine Aminotransferase 48 IU/L (<35); Albumin 4.2 g/dL (3.5-5.0); Albumin Globulin Ratio 1.2 (1.0-2.8); Alkaline Phosphatase 102 U/L (38-126); Aspartate Aminotransferase 55 IU/L (14-36); BUN Creatinine Ratio 13.8 (6-22); Bilirubin Total 0.6 mg/dL (0.2-1.3); Blood Urea Nitrogen 8 mg/dL (7-17); Calcium 8.9 mg/dL (8.4-10.2); Carbon Dioxide 34 mmol/L (22-32); Chloride 91 mmol/L (98-107); Creatine Kinase 97 U/L (30-135); Estimated Glomerular Filt Rate > 60 mL/min (>60); Globulin 3.6 g/dL (1.7-4.1); Glucose 100 mg/dL (80-110); HEMOLYSIS < 15 (0-50); Potassium 3.2 mmol/L (3.4-5.1); Sodium 131 mmol/L (137-145); Total Protein 7.8 g/dL (6.3-8.2)
[2022-10-29] VITALS (10 sets, daily range): BP systolic 131–144; BP diastolic 76–98; PULSE 75–88; RESP 10–18; TEMP 35.8–36.6; O2SAT 95–100; BMI 34.0
[2022-10-29 00:05] LABS: Troponin I < 0.012 ng/mL (0.01-0.034)
[2022-10-29 00:30] LABS: Ethanol (ETOH) < 10 mg/dL
[2022-10-29] MEDS: ASPIRIN 81 MG CHEW TAB 324 MG PO (00:34)
[2022-10-29] MEDS: ACETAMINOPHEN 325 MG TABLET 975 MG PO (00:34)
[2022-10-29] MEDS: CLOPIDOGREL 75 MG TABLET PO ×2 (00:35→08:52)
[2022-10-29 00:47] LABS: UR Morphine/Opiate cutoff 300 Negative (Negative); Ur Creatinine 20 (Normal); Ur Specific Gravity 1.015 (Normal); Urine Amphetamines Negative (Negative); Urine Barbiturates Negative (Negative); Urine Benzodiazepines Negative (Negative); Urine Cocaine Negative (Negative); Urine MDMA Negative (Negative); Urine Methadone Negative (Negative); Urine Methamphetamines Negative (Negative); Urine Oxycodone Negative (Negative); Urine Phencyclidine Negative (Negative); Urine Tetrahydrocannabinol Positive (Negative); Urine Tricyclic Antidepressant Negative (Negative); Urine pH 5 (Normal)
[2022-10-29 01:01] LABS: Appearance Urine UA CLEAR; Bilirubin Urine UA NEGATIVE (NEGATIVE); Color Urine UA YELLOW; Glucose Urine UA NEGATIVE (Negative); Ketones Urine UA NEGATIVE (NEGATIVE); Leukocyte Esterase Urine UA NEGATIVE (NEGATIVE); Nitrite Urine UA NEGATIVE (Negative); Occult Blood Urine UA NEGATIVE (Negative); Protein Urine UA NEGATIVE (Negative); Specific Gravity Urine UA <=1.005 (1.000-1.035); Urobilinogen Urine UA 0.2 E.U./dL (0.2)
[2022-10-29 01:07] LABS: pH Urine UA 6.5 (4.5-8.0)
[2022-10-29 01:17] LABS: Bacteria Urine None Seen; Culture Indicated Urine Cult Not Indicated; RBC Urine None Seen (0-5/HPF); WBC Urine None Seen (0-5/HPF)
--- NOTE | 2022-10-29 04:09 | DI.MRI.S_ITS ---
PROCEDURE: MR HEAD/BRAIN WO CON INDICATIONS: TIA TECHNIQUE: Noncontrast axial T1 spin echo, axial T2 fast spin echo, sagittal and axial FLAIR, coronal T2 fast spin echo, axial gradient echo, axial diffusion and ADC through the brain. COMPARISON: None. FINDINGS: Image quality: Excellent. CSF Spaces: Basal cisterns are patent. No extra-axial fluid collections. Ventricles are normal in size and shape. Brain: No intracranial masses or hemorrhage. Seo/white matter interface is normal. Brainstem appears normal. Diffusion-weighted images demonstrate 2 adjacent ill-defined regions of elevated signal intensity within the right anteromedial and posteromedial occipital lobe, measuring roughly 15 mm diameter each, which demonstrate mild FLAIR signal elevation, as well as low ADC map signal. No chronic ischemic insults. Normal intravascular flow voids are present. Skull and face: Calvarium has normal marrow signal. Orbits appear normal. Sinuses: Mild bilateral maxillary sinus mucosal thickening. Air-fluid level within the left maxillary sinus. IMPRESSION: 1. Subacute right occipital lobe infarcts. 2. Sinus disease. Dictated by: Manolo Kaur M.D. on 10/29/2022 at 10:38 Approved by: Manolo Kaur M.D. on 10/29/2022 at 10:40
--- NOTE | 2022-10-29 04:11 | DI.ECHO.S_ITS ---
[facility]---------+ [facility] +---------+ : : [address] : [address] : : : : [id number] : : : : Phone: [phone]+ Echocardiogram Report + + :Name: CYNTHIA CLEMENTS Study Date: 10/29/2022 Height: 64 in : :[facility] ReadingLocation: Weight: 195 lb : : Gender: Female BSA: 1.9 m2 : :: 1960 Age: 62 yrs BP: 136/76 mmHg: :Reason For Study: HYPERTENSIVE URGENCY, TIA : :Ordering Physician: EDIN, : :AIDEE Performed By: Tiffany Guzman : :Referring: AIDEE JESUS : + + Interpretation Summary The ejection fraction is estimated to be 65-70%. Diastolic parameters suggest probable normal left ventricular diastolic function and normal filling pressures. The right ventricle is normal in size and function. Injection of contrast documented no interatrial shunt. There is mild tricuspid regurgitation. The right ventricular systolic pressure is estimated to be at least 24 mmHg based on an estimated right atrial pressure of 3 mm Hg. Procedure: A two-dimensional transthoracic echocardiogram with color flow and Doppler was performed. There is no prior echocardiogram noted for this patient. The study quality was technically difficult. A saline contrast injection was performed to assess for cardiac shunting. The injection was performed through an intravenous line in the right arm. The patient was in sinus rhythm with heart rates between 70-94 bpm during the exam. Left Ventricle: Proximal septal thickening is noted. The ejection fraction is estimated to be 65-70%. Diastolic parameters suggest probable normal left ventricular diastolic function and normal filling pressures. Right Ventricle: The right ventricle is normal in size and function. Atria: The left atrial size is normal. Right atrial size is normal. There is no Doppler evidence for an interatrial shunt. Injection of contrast documented no interatrial shunt. Mitral Valve: The mitral valve is normal in structure and function. There is trace mitral regurgitation. Aortic Valve: The aortic valve is not well visualized. There is no aortic valve stenosis. No aortic regurgitation is present. Tricuspid Valve: The tricuspid valve is normal in structure and function. There is mild tricuspid regurgitation. The right ventricular systolic pressure is estimated to be at least 24 mmHg based on an estimated right atrial pressure of 3 mm Hg. Pulmonic Valve: The pulmonic valve is not well visualized. There is no pulmonic valvular regurgitation. Great Vessels: The aortic root is normal size. The dimensions of the ascending aorta are normal. The IVC is of normal diameter and collapses greater than 50% with a sniff. This suggests a low right atrial pressure of 3 mm Hg. Pericardium/ Pleura There is no pericardial effusion. There is no pleural effusion. MMode/2D Measurements & Calculations LVIDd: 3.2 cm LVOT diam: 2.1 cm LVIDs: 2.1 cm Ao root diam: 2.9 cm FS: 34.8 % asc Aorta Diam: 3.2 cm IVSd: 0.98 cm Ao Arch Diam (Prox Trans): 3.0 cm LVPWd: 1.0 cm LV calderon. diameter/BSA (cm/m^2): 1.6 LV sys. diameter/BSA (cm/m^2): 1.1 LA A2 area: 17.2 cm2 RA long axis: 4.7 cm LA A4 area: 14.0 cm2 RA area: 14.1 cm2 LA length (vol): 5.1 cm RA vol: 36.3 ml LA vol: 40.1 ml RA : 18.8 ml/m2 LA vol index: 20.7 ml/m2 IVC diam: 1.4 cm RVD1 (basal): 3.1 cm RVD2 (mid): 2.6 cm TAPSE: 1.8 cm Doppler Measurements & Calculations Ao V2 max: 113.8 cm/sec LVOT Max Fazal: 108.2 cm/sec Ao V2 mean: 89.2 cm/sec LV V1 max P.7 mmHg Ao max P.2 mmHg LV V1 VTI: 22.5 cm Ao mean P.4 mmHg GUSTAVO(I,D): 3.2 cm2 Ao V2 VTI: 24.4 cm GUSTAVO(V,D): 3.3 cm2 sev ratio: 0.92 GUSTAVO indexed to BSA (cm^2/m^2): 1.6 MV E max fazal: 54.7 cm/sec TR max fazal: 231.4 cm/sec MV A max fazal: 96.5 cm/sec TR max P.4 mmHg MV E/A: 0.57 PA V2 max: 81.1 cm/sec Med Peak E' Fazal: 3.9 cm/sec PA V2 mean: 56.3 cm/sec E/E' med: 13.9 PA mean P.5 mmHg Lat Peak E' Fazal: 7.9 cm/sec E/E' lat: 6.9 E/e' average: 10.4 MV dec time: 0.20 sec SV(LVOT): 77.4 ml Reading Physician:10:02 AM
[2022-10-29 04:57] LABS: COVID19 - ADMIT (NP swab/PCR) Negative (Negative)
[2022-10-29] MEDS: TRAMADOL 50 MG TABLET PO ×2 (05:14→08:53)
[2022-10-29] MEDS: OXYCODONE IR 5 MG TABLET PO (05:22)
--- NOTE | 2022-10-29 06:00 | P.HP_ITS ---
History of Present Illness History of Present Illness Date Patient Seen: 10/29/22 Time Patient Seen: 04:19 Chief complaint: headache/vision is weird Narrative: Jabier Szymanski is a 62-year-old female with a history fibromyalgia, GERD, essential hypertension, Raynaud's syndrome, and tinnitus who presented to the ED after experiencing a severe headache with left eye vision changes at approximately 9:10 p.m. this evening, presenting NIH score: 1 in ED, patient denies any precipitating factors, any associated symptoms, and has never experienced an episode like this prior. Patient denies any previous history of stroke or heart attack. Patient's symptoms were present when she initially presented to the ED, was sent for CT Chavez, and the stroke team was contacted they were beginning initiation of tPA when the patient's symptoms completely resolved. They then abandoned tPA and requested the patient receive ASA and Plavix dose. On admit patient denies chest pain, shortness in breath, difficulty swallowing, speech impairment, weakness, numbness, tingling, difficulty with ambulation, recent falls, head injury, LOC, fever, body aches, chills, cough, recent exposure to illness, abdominal pain, nausea, vomiting, urinary incontinence/retention, dysuria, frequency, urgency, hematuria, bowel changes, constipation, incontinence, melena, rashes, recent changes to medication, illness, injury, or trauma. At the time of admit patient is resting in the ED on the gurney although uncomfortable due to recent back surgery. Patient is asymptomatic. Admit vit als temp 97.2?, BP 180/88, 87, 16, O2 saturation 100% on room air. CBC is unremarkable, sodium 131, chloride 91, potassium 3.2, bicarb 34, tox screen is positive for THC, ETOH is negative, head and neck CTA is negative, brain CT is negative. Patient admitted for stroke rule out TIA, and hypertensive urgency. Patient History Medical History Acid reflux Anxiety Arthritis Chronic back pain Fibromyalgia Hx of lipoma Insomnia Surgical History History of third molar tooth extraction Hx of abdominoplasty Hx of hernia repair Status post bilateral salpingo-oophorectomy (BSO) (08/30/16) Status post dilation and curettage (08/30/16) Status post tubal ligation Family & Social History Family History Mother Hypertension Grandmother Cancer Grandfather Diabetes mellitus Social History: household members spouse Prior Living Arrangements House Safety & Behavioral: Feels Safe in Current Yes Environment Been Physically Hurt or No Threatened By a Person Tobacco & Substance use: Smoking Status Never smoker alcohol intake current alcohol intake frequency other Substance Use Type marijuana Meds Home Medications and Allergies Home Medications Medication Instructions Recorded Confirmed Type Prilosec 20 mg PO DAILY 04/23/22 10/29/22 History colestipol 1 gram tablet 1 g PO BID 04/23/22 10/29/22 History tramadol 50 mg tablet 50 mg PO BID 04/23/22 10/29/22 History chlorthalidone 25 mg tablet 12.5 mg PO DAILY 10/29/22 10/29/22 History hydroxyzine HCl 25 mg tablet 25 mg PO BEDTIME 10/29/22 10/29/22 History pravastatin 10 mg tablet 10 mg PO DAILY 10/29/22 10/29/22 History Allergies Allergy/AdvReac Type Severity Reaction Status Date / Time latex [LATEX] AdvReac Mild RASH FROM Verified 10/28/22 22:50 RUBBER GLOVES erythromycin base AdvReac Unknown VOMITING Verified 10/28/22 22:50 [ERYTHROMYCIN BASE] Review of Systems Review of Systems Narrative: All 12 point systems reviewed with the patient and are negative except otherwise documented. Exam Vital Signs (past 8 hours): - 10/28/22 22:48 10/28/22 23:45 10/29/22 03:10 Temperature 97.2 F L Pulse Rate 87 92 H Respiratory Rate 16 Blood Pressure 180/88 H 176/98 H 142/83 H Pulse Oximetry 100 90 L Oxygen Delivery Method Room Air Oxygen Flow Rate 10/29/22 00:00 10/29/22 00:30 10/29/22 00:45 Temperature Pulse Rate 79 80 79 Respiratory Rate 11 L Blood Pressure Pulse Oximetry 100 99 99 Oxygen Delivery Method Oxygen Flow Rate 10/29/22 01:00 10/29/22 01:15 10/29/22 03:15 Temperature 97.4 F L Pulse Rate 81 75 83 Respiratory Rate 10 L 10 L 18 Blood Pressure 144/98 H Pulse Oximetry 98 100 98 Oxygen Delivery Method Oxygen Flow Rate 0 10/29/22 04:12 10/29/22 05:27 Temperature 97.9 F Pulse Rate 75 Respiratory Rate 12 Blood Pressure 136/76 Pulse Oximetry 99 Oxygen Delivery Method Room Air Oxygen Flow Rate 0 Oxygen Delivery Method Room Air Oxygen Flow Rate 0 Narrative Exam Narrative: General: Patient is a well-developed, well-nourished in no distress at this time. HEENT: Normocephalic, atraumatic, extraocular muscles intact, oral pharynx is clear and mucous membranes are moist. Neck is supple and symmetric, trachea is midline, no adenopathy, no thyroid enlargement, nontender, no masses palpated. Negative for JVD Chest: Normal AP diameter and contour without kyphoscoliosis, no nasal flaring, retractions, or tachypneic labored Lungs: Auscultation of all lung hubbard are clear without adventitious sounds, wheezes, rhonchi, or rales. Cardio: S1 & S2 with regular rate and rhythm without murmur, rubs, or gallops, no carotid bruit, no cardiac pulsations present. Abdomen: Soft nontender, negative for organomegaly, or masses. Bowel sounds are present in all 4 quadrants without guarding or rebound, no CVA tenderness. Musculoskeletal: Muscle strength and tone are equal within normal limits, no deformity, crepitus, effusions, cyanosis, clubbing or edema present. Full range of motion intact radial and pedal pulses are normal. Skin: Warm dry and intact without rashes, ulcerations or petechiae. Neuro: Alert and orientated x3, strength is +5/5 in all extremities, sensation to touch intact, no gross deficits noted of cranial nerves. Psych: Patient has a well-kept appearance, appropriate affect, mental status attitude thought context and judgment are appropriate for age. Objective Labs 10/28/22 23:36 10/28/22 23:36 Labs: Laboratory Results - last 24 hr 10/28/22 10/28/22 10/28/22 05:30 23:17 23:36 WBC 7.1 RBC 4.52 Hgb 15.0 Hct 42.0 MCV 92.9 MCH 33.2 MCHC 35.7 RDW 12.6 Plt Count 168 Neut % (Auto) 59.8 Lymph % (Auto) 27.7 [place] % (Auto) 9.2 Eos % (Auto) 2.5 Baso % (Auto) 0.8 Neut # (Auto) 4300 Lymph # (Auto) 2000 [place] # (Auto) 700 Eos # (Auto) 200 Baso # (Auto) 100 PT INR APTT Sodium Potassium Chloride Carbon Dioxide BUN Creatinine Estimated GFR BUN/Creatinine Ratio Glucose Calcium Magnesium Cancelled Total Bilirubin AST ALT Alkaline Phosphatase Total Creatine Kinase CK-MB (CK-2) CK-MB (CK-2) Rel Index Troponin I Total Protein Albumin Globulin Albumin/Globulin Ratio Urine Color Urine Appearance Urine pH Ur Specific Pinon Urine Protein Urine Glucose (UA) Urine Ketones Urine Occult Blood Urine Nitrate Urine Bilirubin Urine Urobilinogen Ur Leukocyte Esterase Urine RBC Urine WBC Urine Bacteria Ur Culture Indicated? U Opiates 300ng/mL cut Negative Ur Oxycodone Screen Negative Urine Methadone Screen Negative Ur Barbiturates Screen Negative U Tricyclic Antidepress Negative Ur Phencyclidine Scrn Negative Ur Amphetamines Screen Negative U Methamphetamines Scrn Negative Ur MDMA Scrn (Ecstasy) Negative U Benzodiazepines Scrn Negative Urine Cocaine Screen Negative U Marijuana (THC) Screen Positive H Ethyl Alcohol SARS-CoV-2 (PCR) 10/28/22 10/28/22 10/28/22 23:36 23:36 23:36 WBC RBC Hgb Hct MCV MCH MCHC RDW Plt Count Neut % (Auto) Lymph % (Auto) [place] % (Auto) Eos % (Auto) Baso % (Auto) Neut # (Auto) Lymph # (Auto) [place] # (Auto) Eos # (Auto) Baso # (Auto) PT 11.7 INR 1.0 APTT 35 Sodium 131 L Potassium 3.2 L Chloride 91 L Carbon Dioxide 34 H BUN 8 Creatinine 0.58 Estimated GFR > 60 BUN/Creatinine Ratio 13.8 Glucose 100 Calcium 8.9 Magnesium 2.0 Total Bilirubin 0.6 AST 55 H ALT 48 H Alkaline Phosphatase 102 Total Creatine Kinase 97 CK-MB (CK-2) TNP CK-MB (CK-2) Rel Index TNP Troponin I < 0.012 Total Protein 7.8 Albumin 4.2 Globulin 3.6 Albumin/Globulin Ratio 1.2 Urine Color Urine Appearance Urine pH Ur Specific Pinon Urine Protein Urine Glucose (UA) Urine Ketones Urine Occult Blood Urine Nitrate Urine Bilirubin Urine Urobilinogen Ur Leukocyte Esterase Urine RBC Urine WBC Urine Bacteria Ur Culture Indicated? U Opiates 300ng/mL cut Ur Oxycodone Screen Urine Methadone Screen Ur Barbiturates Screen U Tricyclic Antidepress Ur Phencyclidine Scrn Ur Amphetamines Screen U Methamphetamines Scrn Ur MDMA Scrn (Ecstasy) U Benzodiazepines Scrn Urine Cocaine Screen U Marijuana (THC) Screen Ethyl Alcohol < 10 SARS-CoV-2 (PCR) 10/29/22 10/29/22 10/29/22 00:20 00:20 03:27 WBC RBC Hgb Hct MCV MCH MCHC RDW Plt Count Neut % (Auto) Lymph % (Auto) [place] % (Auto) Eos % (Auto) Baso % (Auto) Neut # (Auto) Lymph # (Auto) [place] # (Auto) Eos # (Auto) Baso # (Auto) PT INR APTT Sodium Potassium Chloride Carbon Dioxide BUN Creatinine Estimated GFR BUN/Creatinine Ratio Glucose Calcium Magnesium Total Bilirubin AST ALT Alkaline Phosphatase Total Creatine Kinase CK-MB (CK-2) CK-MB (CK-2) Rel Index Troponin I Total Protein Albumin Globulin Albumin/Globulin Ratio Urine Color Yellow Urine Appearance Clear Urine pH 6.5 Ur Specific Pinon <=1.005 Urine Protein Negative Urine Glucose (UA) Negative Urine Ketones Negative Urine Occult Blood Negative Urine Nitrate Negative Urine Bilirubin Negative Urine Urobilinogen 0.2 Ur Leukocyte Esterase Negative Urine RBC None seen Urine WBC None seen Urine Bacteria None seen Ur Culture Indicated? Cult not indicated U Opiates 300ng/mL cut Negative Ur Oxycodone Screen Negative Urine Methadone Screen Negative Ur Barbiturates Screen Negative U Tricyclic Antidepress Negative Ur Phencyclidine Scrn Negative Ur Amphetamines Screen Negative U Methamphetamines Scrn Negative Ur MDMA Scrn (Ecstasy) Negative U Benzodiazepines Scrn Negative Urine Cocaine Screen Negative U Marijuana (THC) Screen Positive H Ethyl Alcohol SARS-CoV-2 (PCR) Negative Assessment & Plan Assessment & Plan narrative: Jabier Szymanski is a 62-year-old female with a history fibromyalgia, GERD, essential hypertension, Raynaud's syndrome, and tinnitus who presented to the ED after experiencing a severe headache with left eye vision changes at approximately 9:10 p.m. this evening, presenting NIH score: 1 in ED. patient admitted for TIA versus stroke rule out. 1. Headache with left eye vision change, acute, present on admission -possible TIA versus stroke versus migraine Patient is asymptomatic. -Admit vitals temp 97.2?, BP 180/88, 87, 16, O2 saturation 100% on room air. CBC ---tox screen is positive for THC, ETOH is negative, -head and neck CTA is negative, brain CT is negative. Patient admitted for stroke rule out TIA, and hypertensive urgency -Plavix and ASA, MR ordered, echo ordered -PT OT evaluation -Stroke precautions 2. Hypertension, essential with hypertensive urgency, acute on chronic, present on admission -continue chlorthalidone -echo ordered 3. Hyperlipidemia, chronic, present on admission -continue Lipitor in place of rosuvastatin -Lipids ordered 4. Fibromyalgia, chronic, present on admission -continue tramadol and hydroxyzine 5. GERD, chronic, present on admission -continue PPI 6. obesity, mild , acute on chronic, present on admission -as evidence by BMI 33.5 -dietary consult ordered regarding nutritional education and information for tary, lifestyle, exercise, and weight changes. -the patient is at much higher risk for medical and surgical complications due to obesity as it relates to chronic illnesses:, and acute illness. The wilfrid aguilar's obesity increases the difficulty and complexity of medical and/or surgical interventions, management and increases the chances of poor outcome such as morbidity and mortality as well as impaired wound healing. Code status: Full Surrogate decision maker: Berry spouse COVID PCR: Negative DVT/VTE prophylaxis: Lovenox and SCDs Disposition: Patient admitted for observation expected length of stay less than 2 midnights. I have utilized all available immediate resources to obtain, update, or review the patient's current medications. I confirmed that the patient's advanced care plan is present, Code status is documented and/or surrogate decision maker is listed in the patient's medical record. I have personally reviewed patient's chart notes from PCP, specialists, diagnostic imaging, and laboratory results. Time Spent With Patient Critical Care time: I spent a total of [] minutes of critical care time on this patient's care today; this time is exclusive of procedural time. Quality VTE Deep Vein Thrombosis/Pulmonary Embolism Present on Admission: No
[2022-10-29 06:24] LABS: Alanine Aminotransferase 43 IU/L (<35); Albumin 4.1 g/dL (3.5-5.0); Albumin Globulin Ratio 1.2 (1.0-2.8); Alkaline Phosphatase 86 U/L (38-126); Aspartate Aminotransferase 48 IU/L (14-36); BUN Creatinine Ratio 14.3 (6-22); Bilirubin Total 0.7 mg/dL (0.2-1.3); Blood Urea Nitrogen 8 mg/dL (7-17); Calcium 9.1 mg/dL (8.4-10.2); Carbon Dioxide 30 mmol/L (22-32); Chloride 97 mmol/L (98-107); Cholesterol 227 mg/dL (140-199); Estimated Glomerular Filt Rate > 60 mL/min (>60); Globulin 3.4 g/dL (1.7-4.1); Glucose 113 mg/dL (80-110); HDL Cholesterol 56 mg/dL (40-60); HEMOLYSIS < 15 (0-50); LDL Cholesterol Calculated 133 mg/dL (<100); Sodium 137 mmol/L (137-145); Total Protein 7.5 g/dL (6.3-8.2); Triglycerides 190 mg/dL (35-150)
[2022-10-29 06:32] LABS: NT-proBNP (BNP-Adult 18+) 74 pg/mL (<125)
[2022-10-29 06:34] LABS: INR 1.1 (0.9-1.3); Prothrombin Time 12.4 SECONDS (10.1-12.7)
[2022-10-29] MEDS: POTASSIUM CHLORIDE 20 MEQ TAB PO (07:02)
[2022-10-29] MEDS: ENOXAPARIN 40 MG/0.4 ML SYRINGE SUBCUT (08:52)
[2022-10-29] MEDS: ASPIRIN EC 81 MG TABLET PO (08:52)
[2022-10-29] MEDS: POTASSIUM CHLORIDE 20 MEQ TAB 40 MEQ PO ×2 (08:53→11:39)
[2022-10-29] MEDS: CHLORTHALIDONE 25 MG TABLET 12.5 MG PO (08:53)
--- NOTE | 2022-10-29 09:24 | PT.IIE ---
Surgical History (Last Reviewed 10/29/22 @ 06:07 [facility] History of third molar tooth extraction Hx of abdominoplasty Hx of hernia repair Status post bilateral salpingo-oophorectomy (BSO) (08/30/16) Status post dilation and curettage (08/30/16) Status post tubal ligation Medical History (Last Reviewed 10/29/22 @ 06:07 [facility] Acid reflux Anxiety Arthritis Chronic back pain Fibromyalgia Hx of lipoma Insomnia Physical Therapy Inpatient Evaluation/Re-Eval M1 PT/OT-IP Prior Functional Status Start: 10/29/22 09:24 Freq: NEEDED Status: Active Protocol: Document 10/29/22 09:24 DLM (Rec: 10/29/22 09:46 DL [id number]) Medical Review Prior Functional Status Medical History Reviewed Yes Diet/Fluid Consistency Regular Communication WNL, recent onset of tinnitus and has ENT consult for it Mobility and Gait Independent without device, active in community Activities of Daily Living and IADL's Independent, drives She reports her pain makes it harder to do some housework but she can complete it. Social History Household Members spouse Living Arrangements House Number of Floors (Floors) One Floor Number of Stairs To Enter/Railing? none Home Environment High Toilet,Walk in Shower Home Equipment Shower Seat with Backrest,Grab Bars Near Toilet,Grab Bars In Shower Employment Status Retired Additional Social History Comment her has health issues but is currently independent M2 PT-IP Current Condition Start: 10/29/22 09:24 Freq: NEEDED Status: Active Protocol: Document 10/29/22 09:24 DLM (Rec: 10/29/22 09:46 DL [id number]) Physical Therapy Current Condition Current Condition Evaluation Date 10/29/22 Treatment Diagnosis possible CVA/TIA, impaired vision and balance Onset Date 10/28/22 M3 PT-IP Subjective Start: 10/29/22 09:24 Freq: NEEDED Status: Active Protocol: Document 10/29/22 09:24 DLM (Rec: 10/29/22 09:46 [facility] [id number]) Subjective Physical Therapy Visit Type Type Initial Evaluation Visit Start Time 09:00 Visit Stop Time 09:24 Total Visit Minutes 24 Number of BUILDING MAINTENANCE CUSTODIAN Visits 0 Physical Therapy Visit Comments Patient Comments She reports feeling better today but still has headache and vision is a little off. Yesterday right side of words were missing when she looked at them but not today. Patient Goals Discharge home Therapy Pain Assessment Pain When Pain Assessed At Rest Pain Present Pain Present Pain Reported Location headache Intensity 4 Scale Used Numeric (0 - 10) Description Aching M4 PT-IP Mobility and Gait Start: 10/29/22 09:24 Freq: NEEDED Status: Active Protocol: Document 10/29/22 09:24 [facility] (Rec: 10/29/22 09:46 [facility] [id number]) PT-Bed Mobility Assessment Rolling Level of Assist Independent Supine to Sit Supine to Sit Independent Sit to Supine Sit to Supine Independent Scooting Scooting to Edge of Bed Independent Scooting Up and Down in Bed Independent PT-Transfer Assessment Sit to and From Stand Sit to and from Stand Independent Equipment Transfer Assistive Device None Transfers Transfer Destination Bed Transfer Technique Stand Step Pivot Transfer Ability Level of Assist Independent,Use of Upper Extremities Gait Assessment Gait Gait Assistance Required: Standby Assistance Distance (Feet) 250 Assistive Devices Assistive Device None Factors Limiting Gait Function Factors Limiting Gait Function Poor Balance Comments Gait Comments decreased lateral balance, right lean Stair Climbing Assessment Comments Stair Climbing Comments no stairs at home PT-Balance Assessment Sitting Balance and Reactions Static Sitting Balance Ability Normal Dynamic Sitting Balance Ability Normal Standing Balance and Reactions Static Standing Balance Ability Good Dynamic Standing Balance Ability Fair Device Used none Comments Other Balance Tests/Deviations/Treatment dizzy reported : Functional Assessments Functional Tests Tinetti Balance and Gait Assessment Other Functional Tests Performed Perez Balance Score 52/56 M5 PT-IP Objective Assessments Start: 10/29/22 09:24 Freq: NEEDED Status: Active Protocol: Document 10/29/22 09:24 DLM (Rec: 10/29/22 09:46 [facility] [id number]) Orientation Orientation/Cognition Level of Alertness Alert Orientation Name,Age,Birthday,Month,Date, Year,Day of Week,Place, Situation Language Function Ability No Deficits Noted Safety Awareness Understands Safety Issues Memory Description No Deficits Noted Gross Range of Motion Upper Extremity ROM Assessment Within Functional Limits Lower Extremity ROM Assessment Within Functional Limits Strength Upper Extremity Strength Assessment Within Functional Limits Lower Extremity Strength Assessment Within Functional Limits Coordination Assessment Gross Coordination Gross Coordination WNL Assessment Foot Tapping Test Normal Performance Coordination Comments see OT assessment for details of UE assessment Sensation Assessment Sensation Gross Sensation WNL Muscle Tone Muscle Tone WNL Yes M6 PT-IP Treatment Start: 10/29/22 09:24 Freq: NEEDED Status: Active Protocol: Document 10/29/22 09:24 DLM (Rec: 10/29/22 09:46 [facility] [id number]) Physical Therapy Treatment Education Education Provided Safety Other Treatments Other Treatment Performed educated her in finding of balance impairment M7 PT-IP Assessment and Plan Start: 10/29/22 09:24 Freq: NEEDED Status: Active Protocol: Document 10/29/22 09:24 DLM (Rec: 10/29/22 09:46 [facility] [id number]) PT Summary Assessment and Plan Potential Rehabilitation Potential Good Status of Condition at Evaluation Evolving Summary Impairments Balance Progress Towards Goals Safe For Discharge Assessment Summary Jabier is alert and resting in bed. She reports having a headache, dizziness and mild vision impairments today. She demonstrates mild impairment in her standing balance with right sided lean and impairments in the lateral limits of her stability. She is able to compensate during gait and ambulate without a device on level surfaces and mild decrease in her normal pace. She may benefit from using a cane in the community to assist with compensations on uneven surfaces. She appears safe to discharge home with her when medically stable. She could benefit from out-pt physical therapy to address her balance impairment. Frequency of Treatment Frequency Of Treatment Discharge Recommendations To Nursing Amount of Assist Needed Standby Assistance Discharge Recommendations PT Discharge Recommendations Home,Outpatient PT Other Discharge Recommendations out-pt PT if balance impairment continues Equipment Needed for Home Before she reports she can borrow Discharge cane from Spouse if needed Transportation Needs at Discharge Private Vehicle
[2022-10-29] MEDS: LORazepam 2 MG/ML INJ 1 MG IV (09:36)
--- NOTE | 2022-10-29 09:44 | OT.IP.EVAL ---
Past Medical History (Last Reviewed 10/29/22 @ 06:07 by KATE RobertsonCJ) Acid reflux Anxiety Arthritis Chronic back pain Fibromyalgia Hx of lipoma Insomnia Surgical History ([facility] Reviewed 10/29/22 @ 06:07 [facility] History of third molar tooth extraction Hx of abdominoplasty Hx of hernia repair Status post bilateral salpingo-oophorectomy (BSO) (08/30/16) Status post dilation and curettage (08/30/16) Status post tubal ligation Occupational Therapy Inpatient Evaluation/Re-Eval M1 PT/OT-IP Prior Functional Status Start: 10/29/22 09:24 Freq: NEEDED Status: Active Protocol: Document 10/29/22 09:24 DL (Rec: 10/29/22 09:46 [facility] [id number]) Medical Review Prior Functional Status Medical History Reviewed Yes Diet/Fluid Consistency Regular Communication WNL, recent onset of tinnitus and has ENT consult for it Mobility and Gait Independent without device, active in community Activities of Daily Living and IADL's Independent, drives She reports her pain makes it harder to do some housework but she can complete it. Social History Household Members spouse Living Arrangements House Number of Floors (Floors) One Floor Number of Stairs To Enter/Railing? none Home Environment High Toilet,Walk in Shower Home Equipment Shower Seat with Backrest,Grab Bars Near Toilet,Grab Bars In Shower Employment Status Retired Additional Social History Comment her has health issues but is currently independent M2 OT-IP Current Condition Start: 10/29/22 11:40 Freq: Status: Active Protocol: Document 10/29/22 09:00 [facility] (Rec: 10/29/22 12:15 [facility] [id number]) Occupational Therapy Current Condition Current Condition Evaluation Date 10/29/22 Treatment Diagnosis Subacute right occipital lobe infarct Diagnosis Onset Date 10/29/22 M3 OT- IP Subjective and Pain Start: 10/29/22 11:40 Freq: Status: Active Protocol: Document 10/29/22 09:00 [facility] (Rec: 10/29/22 12:15 [facility] [id number]) OT- Subjective Occupational Therapy Visit Type Type Initial Evaluation Visit Start Time 09:00 Visit Stop Time 09:44 Total Visit Minutes 44 Occupational Therapy Visit Comments Patient Comments Pt agreed to get up for OT eval. Patient/Caregiver Goals To go home OT Pain Assessment Pain When Pain Assessed At Rest Pain Present Pain Present Pain Reported Location headache Intensity 5 Scale Used Numeric (0 - 10) M4 OT- IP ADL's Start: 10/29/22 11:40 Freq: Status: Active Protocol: Document 10/29/22 09:00 [facility] (Rec: 10/29/22 12:15 [facility] [id number]) OT AAD-Dfcn-Wwaywkp Comments OT Self-Feeding Comments Not at meal time. OT ADL-Grooming Comments OT Grooming Comments Not performed. OT ADL-Oral Care Comments Oral Care Comments Not performed OT ADL-Dressing General Eval Lower Body Dressing Ability Independent Comments OT Dressing Comments Pt able to independently jessica/ doff while seated. OT ADL-Toileting Comments OT Toileting Comments Pt able to walk in and out of the bathroom on her own. OT ADL-Bathing Comments OT Bathing Comments Pt would benefit from a shower chair due to decrease dynamic balance. M5 OT- IP IADL's Start: 10/29/22 11:40 Freq: Status: Active Protocol: Document 10/29/22 09:00 [facility] (Rec: 10/29/22 12:15 [facility] [id number]) OT-Instrumental Activities of Daily Living Deficits IADL Deficits Identified Deficits Home Safety Awareness Awareness of Need for Assistance at Home Good Awareness Ability to Problem Solve Emergency Able to Problem Solve Situations Medication Management Medication Management Comments Pt may benefit from supervision. Money Management Money Management Comments Pt's does the bills prior. Meal Preparation Meal Preparation Comments Pt woud benefit from assist. Media Theorist And Author Of Media Theorist And Author Of Comments Pt would benefit from assist. Driving Driving Concerns Identified Regarding Safety M6 OT- IP Functional Cognition Start: 10/29/22 11:40 Freq: Status: Active Protocol: Document 10/29/22 09:00 [facility] (Rec: 10/29/22 12:15 [facility] [id number]) Cognitive Factors Limiting Selfcare Function Cognitive Ability Level of Alertness Alert Patient Orientation Name,Place,Situation Attention Span Ability Capable of Focused Attention, Capable of Sustained Attention Ability to Follow Commands Able to Follow One Step Commands Memory Description Short Term Impaired,Working Impaired Cognitive Comments Cognitive Assessment Comments Pt just given oxycodone earlier which may be affecting her cognition. Pt scored 175 seconds and needing multiple cues to stay on task and recall the directions. Pt's score implies severe impairments for visual attention, executive functioning, task switching, mental flexibility, speed of processing. OT- Vision and Hearing OT- Hearing Assessment OT- Hearing Assessment WFL OT- Vision Assessment Visual Acuity Glasses For Reading Visual Attentiveness WFL Occular Pursuits WFL Visual Convergence WFL Visual [place] Impaired Diplopia Absent Visual Spacial Neglect Left Vision Assessment Comments Pt decreased vision on peripheral vision of left eye for upper and lower quadrants. pt bumping into objects on the left and educated to turn her head to the left as well as her eyes. Pt states tend to look to the right to back up her car from a parking spot recently as well and just realizing that she tends to avoid looking left when backing up her car while driving. Pt is aware that best for her not to drive at this time. M7 OT- IP Mobility and Balance Start: 10/29/22 11:40 Freq: Status: Active Protocol: Document 10/29/22 09:00 [facility] (Rec: 10/29/22 12:15 [facility] [id number]) OT- Bed Mobility Assessment Supine to Sit Supine to Sit Assist Independent Sit to Supine Sit to Supine Assist Independent Scooting Scooting to Edge of Bed Independent OT-Transfer Assessment Sit to and From Stand Sit to and from Stand Independent Transfers Transfer Ability Independent Technique Transfer Destination Bed Transfer Technique Stand Step Pivot Devices Transfer Assistive Devices None Comments Mobility Comments Pt independent in the room and close SBA as pt tends to lean to the right and bumping to the doorway on the left. OT- Balance Assessment Sitting Balance and Reactions Static Sitting Balance Ability Normal Dynamic Sitting Balance Ability Normal Standing Balance and Reactions Static Standing Balance Ability Good Dynamic Standing Balance Ability Fair M8 OT- IP Objective Assessments Start: 10/29/22 11:40 Freq: Status: Active Protocol: Document 10/29/22 09:00 [facility] (Rec: 10/29/22 12:15 [facility] [id number]) OT Gross Range of Motion Upper Extremity Range of Motion Assessment Within Functional Limits OT Strength Upper Extremity Strength Assessment Within Functional Limits OT- Coordination Assessment Upper Extremity Finger to Nose Test Within Functional Limits Comments Coordination Comments Right hand 20 seconds 75th % for age Left hand 25 seconds 50% for age OT-Muscle Tone Assessment Muscle Tone WNL Yes M9 OT- IP Assessment and Plan Start: 10/29/22 11:40 Freq: Status: Active Protocol: Document 10/29/22 09:00 [facility] (Rec: 10/29/22 12:15 [facility] [id number]) OT Summary Assessment and Plan Potential Rehabilitation Potential Excellent Analytic Complexity at Evaluation Moderate Summary OT Impairments Pain,Balance,Coordination, Functional Mobility,Bathing, Activity Tolerance Progress Towards Goals Progressing Toward Goals Assessment Summary Pt MOD complexity and here due to subacute right occipital CVA and decreased peripheral vision on the left eye for upper and lower quadrants. Pt able to do her ADL's and mobility on her own but is slightly off balanced and leans a little to the right and has left neglect and bumping into the doorways and objects on the left. Pt will benefit from outpt therapy to work on visual deficits, coordination of left UE . Goals Toileting Goal Independent Bathing Goal Independent Toilet Transfer Goal Independent Shower Transfer Goal Independent OT-Other Goals Pt to be able to incorporate visual strategies for left neglect and peripheral vision for left eye 100% of the time during ADL and mobility needs. Days to Meet Goals 5 Frequency of Treatment Frequency Of Treatment Once a Day Treatment Plan OT Treatment Plan ADL Training,Functional Cognition Training,Functional Mobility,Vision Retraining, Patient/Family Education, Discharge Planning Other Treatment Recommendations and Next shower, vision training Treatment Focus Discharge Recommendations OT Discharge Recommendations Home with Assistance, Outpatient PT Home Equipment Needs shower chair Transportation Needs at Discharge Private Vehicle
--- NOTE | 2022-10-29 14:25 | PC.NURSE ---
Pt is dressed and ready for discharge home with Spouse. IV has been removed. Went over d/c instructions with Pt and Spouse, discussed d/c meds, time of last dose, reviewed stroke education, new medications, and reminded Pt to follow up with her PCP within 2 weeks. Pt denied further questions and was taken out via w/c by [employer] to POV with Spouse and all belongings.
== END 2022-10-29 13:55 | disposition home or self-care (01) | DRG 45 ==
LOC: ED 23:16 → AC 10-29 03:07
PROVIDERS: Admitting Provider Nurse Practitioner Family; Emergency Provider Emergency Medicine; PCP Student in an Organized Health Care Education/Training Program; Visit Provider Nurse Practitioner Family
DX: I63.9 Cerebral infarction, unspecified (principal); G45.9 Transient cerebral ischemic attack, unspecified; G43.909 Migraine, unspecified, not intractable, without status migrainosus; I10 Essential (primary) hypertension; I16.0 Hypertensive urgency; E78.5 Hyperlipidemia, unspecified; M79.7 Fibromyalgia; K21.9 Gastro-esophageal reflux disease without esophagitis; E66.9 Obesity, unspecified; R29.701 NIHSS score 1; R29.702 NIHSS score 2; Z68.33 Body mass index [BMI] 33.0-33.9, adult; Z20.822 Contact with and (suspected) exposure to COVID-19
CPT/HCPCS: 36415; 70450; 70496; 70498; 70551; 71045; 80053; 80061; 80305; 80320; 81001; 82550; 83036; 83735; 83880; 84484; 85025; 85610; 85730; 87635; 93306; 97161; 97166; 99284; C9803; G0378; J1650; J2060; Q9967

== ENCOUNTER → 2023-09-11 13:38 | Outpatient (CLI) | payer OTHER, MEDICAID, SELFPAY ==
[2022-10-29 03:17] VITALS: BMI 34.0
--- NOTE | 2023-09-11 13:40 | DI.MG.S_ITS ---
BILATERAL DIGITAL SCREENING MAMMOGRAM 3D/2D WITH CAD: 09/11/2023 CLINICAL: Routine screening. Family history of breast cancer. Comparison is made to exams dated: 08/29/2022 mammogram, 10/30/2018 mammogram, and 12/13/2016 mammogram - [facility]. Both breasts are heterogeneously dense, which may obscure small masses (category c / 51-75% glandular tissue). Current study was also evaluated with a Computer Aided Detection (CAD) system. No significant masses, calcifications, or other findings are seen in either breast. There has been no significant interval change. IMPRESSION: NEGATIVE There is no mammographic evidence of malignancy. A 1 year screening mammogram is recommended. Based on the Tyrer Cuzick model (a risk assessment model) the patient's lifetime risk is 13.2% and her 10 year risk is 5.4%. According to the ACR, ACS, and NCCN guidelines, an annual breast MRI exam along with mammogram is recommended if the patient's lifetime risk is 20% or greater. This exam was interpreted at Station ID: [id number]. NOTE: For mammograms, a report in lay terms will be sent to the patient. Approximately 15% of breast malignancies will not be visualized mammographically. In the management of a palpable breast mass, a negative mammogram must not discourage biopsy of a clinically suspicious lesion. Electronically Signed By: Gio smith/erica:09/11/2023 15:11:30 copy to: Mojgan Reagan letter sent: Normal Exam ACR BI-RADS Category 1: Negative [id number]
== END ==
PROVIDERS: PCP Student in an Organized Health Care Education/Training Program; Referring Provider Student in an Organized Health Care Education/Training Program; Visit Provider Student in an Organized Health Care Education/Training Program
DX: Z12.31 Encounter for screening mammogram for malignant neoplasm of breast (principal); Z80.3 Family history of malignant neoplasm of breast; R92.333 Mammographic heterogeneous density, bilateral breasts
CPT/HCPCS: 77063; 77067